=== PATIENT | male | born 1960 | race Caucasian/White ===

== ENCOUNTER 2018-09-09 07:11 | Emergency (ER) | payer BC, SELFPAY ==
[2018-09-09] VITALS (14 sets, daily range): BP systolic 96–143; BP diastolic 55–83; PULSE 72–120; RESP 16–24; TEMP 36.3–36.8; O2SAT 98–100; BMI 25.7
--- NOTE | 2018-09-09 07:20 | ED.ARRPALP ---
HPI - Arrhythmia/Palpitations General Chief Complaint: Arrhythmia/Palpitations Stated Complaint: AFIB last night Time Seen by Provider: 09/09/18 07:19 Source: patient and family () Mode of arrival: ambulatory Limitations: no limitations History of Present Illness HPI narrative: This is a 58-year-old male comes to the emergency department with complaint of AFib in RVR. Patient states he has a history of atrial fibrillation. He can usually feel when he is in AFib. He states he has had cardioversion twice once here before and wants them out [place]. Sees Dr. granger is his sizing machine tender. He states that last night he doubled up on his beta-pablo. This morning he took a dose as well. He states that once before he has done that and it has been helpful to cause him to cardiovert back into a regular rhythm but was unsuccessful overnight. Patient did this under the direction of his sizing machine tender. He felt short of breath about a week ago and was diagnosed with pneumonia he has been on azithromycin she has finished. He has not had any fevers, no chills but his states he has felt cold a lot recently. No chest pain or pressure, no recent shortness of breath. No nausea no vomiting. He has had some loose stool today. No urinary issues and no swelling in his lower extremities. He did stop drinking alcohol cold turkey 5 days ago on Wednesday. He states he felt very shaky and had sort of withdrawal symptoms for about 36 hours but does have almost completely resolved. He takes medication for hypertension, dyslipidemia, he takes Dilantin but states because of seizures from alcohol. He also takes an aspirin [address] Joseluis newsome is his primary care along with Dr. cherri Lazo is his sizing machine tender. Has had a stress test in the past no cardiac catheterization. Related Data Home Medications Medication Instructions Recorded Confirmed Inderal XL 80 mg PO QDAY #0 01/11/17 09/09/18 losartan 50 mg PO QDAY #0 01/11/17 09/09/18 trazodone 100 mg PO QDAY #0 01/11/17 09/09/18 Adults Multivitamin 09/09/18 aspirin [Aspirin Low Dose] 81 mg PO DAILY 09/09/18 09/09/18 phenytoin sodium extended 100 mg PO TID 09/09/18 09/09/18 [Dilantin Extended] rosuvastatin [Crestor] 40 mg PO DAILY 09/09/18 09/09/18 vitamin B complex [Super B-50 1 cap PO DAILY 09/09/18 09/09/18 Complex] Allergies Allergy/AdvReac Type Severity Reaction Status Date / Time No Known Drug Allergies Allergy Verified 09/09/18 07:37 Review of Systems Review of Systems ROS Unobtainable: All systems reviewed & are unremarkable except as noted in HPI and below Constitutional Denies chills, Denies fever(s), Denies lethargy and Denies weakness Cardiovascular Denies chest pain, Denies syncope, Reports rapid heart rate, Denies edema, Reports irregular heart rhythm, Denies leg edema, Denies lightheadedness, Denies radiating jaw, neck or arm pain, Denies palpitations, Reports dyspnea (1 week before), Denies dyspnea on exertion and Denies orthopnea Respiratory Reports chest congestion, Denies cough, Denies hemoptysis, Denies excessive phlegm production, Denies pain on inspiration, Denies pain with cough, Reports dyspnea (1 week before), Denies dyspnea on exertion and Denies wheezing Gastrointestinal Gastrointestinal: Denies abdominal pain, Denies melena, Denies hematochezia, Denies change in bowel habits, Denies diarrhea, Denies nausea and Denies vomiting Genitourinary Denies hematuria, Denies dysuria, Denies flank pain and Denies urinary urgency Neurologic Denies syncope and Denies weakness Endocrine Reports cold intolerance and Denies palpitations Allergic/Immunologic Denies wheezing PFSH Medical History (Updated 09/09/18 @ 09:09 by Sandra Mckenzie DO) Pneumonia (Acute) Alcohol related seizure (Chronic) Atrial fibrillation (Chronic) Dyslipidemia (Chronic) Surgical History (Updated 09/09/18 @ 08:13 by Sandra Mckenzie DO) H/O thumb surgery (Resolved) Social History (Updated 09/09/18 @ 08:13 by Sandra Mckenzie DO) Smoking Status: Current every day smoker alcohol intake: current substance use type: does not use Social History (Updated 09/09/18 @ 08:13 by Sandra Mckenzie DO) Smoking Status: Current every day smoker alcohol intake: current substance use type: does not use Exam Narrative Exam Narrative: GENERAL: Alert and oriented x three, well nourished, well appearing male. HEENT: Head normocephalic, atraumatic, EOMI, pupils reactive, face symmetric, moist mucous membranes NECK: Supple, full range of motion CARDIOVASCULAR: irregularly irregular rate and rhythm without murmurs, rubs or gallops. RESPIRATORY: Breath sounds equal bilaterally, no wheezes rales or rhonchi. ABDOMEN: Soft, nontender. Normoactive bowel sounds all 4 quadrants. No guarding or rebound, rigidity, no mass : No CVA tenderness EXTREMITIES: Normal range of motion, no clubbing or edema. Neurovascularly intact NEUROLOGICAL: Cranial nerves II through XII grossly intact. Moving all extremities SKIN: Warm, dry, no petechiae, no rashes or lesions. Initial Vital Signs Initial Vital Signs: Vital Signs Temperature 98.2 F 09/09/18 07:20 Pulse Rate 118 H 09/09/18 07:20 Respiratory Rate 24 09/09/18 07:20 Blood Pressure 116/80 09/09/18 07:20 Pulse Oximetry 100 09/09/18 07:20 Procedures Cardioversion Consent Signed: Yes Indication: atrial fibrillation, less than 24 hours of symptoms. Time out performed: Yes Preparation: manager monitoring applied, supplemental O2 applied, suction/airway equipment at bedside and IV secured IV Etomidate Dose (mgs): 8 Total Time of Sedation (Min): 4 Number of attempts (shocks): 1 Joules used: 150 Cardiac rhythm post-cardioversion: Normal sinus rhythm. Patient tolerated procedure sedation: Well Complications sedation: none Procedural Sedation Patient Age: Patient is 5yrs or older Consent signed: Yes Time out performed: Yes Indication: other (cardioversion/afib) ASA Class: II Mallampati Airway Classification: Class II Time of Last PO Intake: 06:00 Preparation: manager monitoring applied, pulse oximeter, supplemental O2 applied, reversal agents at bedside, suction/airway equipment at bedside and IV secured IV Etomidate dose (mg): 8 ED Sedation Level: Moderate (Concious) Patient Tolerated Procedure: Well Complications: none Course Orders Ordered: Discontinued Medications Aspirin (Aspirin Chew) 324 mg PO NOW ONE Stop: 09/09/18 07:20 Last Admin: 09/09/18 07:43 Dose: 243 mg Diltiazem HCl (Cardizem) 10 mg IV NOW ONE Stop: 09/09/18 07:33 Last Admin: 09/09/18 07:44 Dose: 10 mg Etomidate (Amidate) 8 mg IV NOW ONE Stop: 09/09/18 09:13 Last Admin: 09/09/18 08:55 Dose: 8 mg Sodium Chloride (Normal Saline 0.9%) 1,000 mls @ 1,000 mls/hr IV BOLUS ONE Stop: 09/09/18 08:18 Last Infusion: 09/09/18 09:11 Dose: 0 mls/hr Admin: 09/09/18 07:41 Dose: 1,000 mls/hr Vital Signs - 8 hr 09/09/18 18:28 Pulse Rate 117 H Respiratory Rate 16 MDM - Arrhythmia/Palpitations Lab Data Attestation: I reviewed the patient's lab results. Result diagrams: 09/09/18 07:33 09/09/18 07:33 Lab Results 09/09/18 09/09/18 09/09/18 Range/Units 07:33 07:33 07:33 WBC 7.9 (4.5-11.0) X10^3/uL RBC 4.26 L (4.5-5.9) X10^6/uL Hgb 13.9 (13.5-17.5) g/dL Hct 39.8 L (41-53) % MCV 93.5 (80-100) fL MCH 32.5 (26-34) PG MCHC 34.8 (30-36) % RDW 12.3 (11.6-14.8) % Plt Count 191 (150-400) X10^3/uL Neut % (Auto) 67.6 (50-75) % Lymph % (Auto) 18.7 L (25-40) % Henderson % (Auto) 10.6 (3-14) % Eos % (Auto) 2.4 (2-4) % Baso % (Auto) 0.7 (0-2) % Neut # (Auto) 5400 (6963-0675) /uL Lymph # (Auto) 1500 (5513-9410) /uL Henderson # (Auto) 800 (0-900) /uL Eos # (Auto) 200 (0-450) /uL Baso # (Auto) 100 (0-100) /uL PT 9.4 L (10.1-12.7) SECONDS INR 0.8 L (0.9-1.3) APTT 30 (26.4-36.2) SECONDS Sodium 138 (137-145) mmol/L Potassium 3.6 (3.4-5.1) mmol/L Chloride 102 (98-107) mmol/L Carbon Dioxide 29 (22-32) mmol/L BUN 19 (9-20) mg/dL Creatinine 0.80 (0.66-1.25) mg/dL Estimated GFR > 60.0 (>60) mL/min BUN/Creatinine Ratio 23.8 H (6-22) Glucose 120 H (70-100) mg/dL Calcium 8.9 (8.4-10.2) mg/dL Magnesium 2.0 (1.6-2.3) mg/dL Total Creatine Kinase 108 (55-170) U/L CK-MB (CK-2) 2.34 (<2.37) ng/mL CK-MB (CK-2) Rel Index 2.2 (1.5-5.0) % Troponin I 0.013 (0.01-0.034) ng/mL TSH (0.47-4.68) uIU/mL Phenytoin (10-20) ug/mL 09/09/18 09/09/18 Range/Units 07:33 07:33 WBC (4.5-11.0) X10^3/uL RBC (4.5-5.9) X10^6/uL Hgb (13.5-17.5) g/dL Hct (41-53) % MCV (80-100) fL MCH (26-34) PG MCHC (30-36) % RDW (11.6-14.8) % Plt Count (150-400) X10^3/uL Neut % (Auto) (50-75) % Lymph % (Auto) (25-40) % Henderson % (Auto) (3-14) % Eos % (Auto) (2-4) % Baso % (Auto) (0-2) % Neut # (Auto) (5320-8242) /uL Lymph # (Auto) (4224-3663) /uL Henderson # (Auto) (0-900) /uL Eos # (Auto) (0-450) /uL Baso # (Auto) (0-100) /uL PT (10.1-12.7) SECONDS INR (0.9-1.3) APTT (26.4-36.2) SECONDS Sodium (137-145) mmol/L Potassium (3.4-5.1) mmol/L Chloride (98-107) mmol/L Carbon Dioxide (22-32) mmol/L BUN (9-20) mg/dL Creatinine (0.66-1.25) mg/dL Estimated GFR (>60) mL/min BUN/Creatinine Ratio (6-22) Glucose (70-100) mg/dL Calcium (8.4-10.2) mg/dL Magnesium (1.6-2.3) mg/dL Total Creatine Kinase (55-170) U/L CK-MB (CK-2) (<2.37) ng/mL CK-MB (CK-2) Rel Index (1.5-5.0) % Troponin I (0.01-0.034) ng/mL TSH 3.57 (0.47-4.68) uIU/mL Phenytoin 7.5 L (10-20) ug/mL Imaging Data Chest x-ray: Attestation: I personally reviewed and interpreted this imaging study as follows: Radiologist's impression: [address] [address] XRay Report Signed Patient: Prakash Cameron R#: [id number] : 1Acct:[id number] Age/Sex: 58 / MDate of Service: 09/09/18 Loc: ED Accession Number: [id number] Procedure: XR chest 1V Ordering Provider: Sandra Mckenzie D.O. PROCEDURE: XR CHEST 1V INDICATIONS: afib TECHNIQUE: One view of the chest was acquired. COMPARISON: [facility], , CHEST 1 VIEW, 02/04/2015, 12:33. FINDINGS: Surgical changes and devices: None. Lungs and pleura: Lungs are clear. No pleural effusions or pneumothorax. Mediastinum: Mediastinal contours appear normal. Heart size is normal. Bones and chest wall: No suspicious bony lesions. Overlying soft tissues appear unremarkable. IMPRESSION: No acute pulmonary pathology. Dictated by: Alvarez May M.D. on 09/09/2018 at 8:34 Approved by: Alvarez May M.D. on 09/09/2018 at 8:34 ECG Data Attestation: I personally reviewed and interpreted this ECG as follows: Prior ECG tracings: available for review Interpretation: atrial fibrillation with rapid ventricular response. rate of 132, qrs 89, qtc 367. No ST elevation. EKG #2. Shows sinus rhythm with ventricular rate of 65 APR interval 155 and a QRS 87 and a QTC of 404. No ST elevation or depression. EKG APPEARS SIMILAR TO PRIOR IN SINUS RHYTHM FROM 02/04/2015. MDM Narrative Medical decision making narrative: Patient tolerated procedure well. He is in a regular rhythm after conversion. And is asymptomatic. Patients and I discussed that likely his sudden stopping of alcohol intake was a predisposing factor for having another episode of atrial fibrillation. Patient had discussed that it would be good to continue to avoid alcohol. Patient states he was on Dilantin for seizures secondary to alcohol withdrawal but this is atypical, his Dilantin level is low so would not contact him to increase his Dilantin level at this time. Patient is to call and follow up with Cardiology or his primary care. He is also to continue his home medications as prescribed. Discharge Plan Departure Patient Disposition: Home Clinical Impression: Atrial fibrillation with RVR Discharge Date/Time: 09/09/18 09:42 Interventions: ED Discharge Assessment Last Done: 09/09/18 09:40 Instructions: DI for Atrial Fibrillation Activity Restrictions/Additional Instructions: Follow-up with her sizing machine tender or primary care in the next 3-5 days. Call for an appointment. Continue your home medications as prescribed. A Dilantin level is pending. Do not go to work today you may return to work tomorrow. Return to the emergency department for recurrent symptoms, lightheadedness, passing out, chest pain, new shortness of breath, persistent nausea or vomiting, weakness, severe abdominal pain, black or bloody stools or other new or concerning symptoms. Prescriptions: No Action trazodone 100 MG tablet 100 mg PO QDAY Qty: 0 RF: 0 losartan 50 MG tablet 50 mg PO QDAY Qty: 0 RF: 0 Inderal XL 80 MG capsule,extended release 24hr 80 mg PO QDAY Qty: 0 RF: 0 phenytoin sodium extended [Dilantin Extended] 100 mg Capsule 100 mg PO TID RF: 0 rosuvastatin [Crestor] 40 mg Tablet 40 mg PO DAILY RF: 0 aspirin [Aspirin Low Dose] 81 mg Tablet,Delayed Release (Dr/Ec) 81 mg PO DAILY RF: 0 Adults Multivitamin RF: 0 vitamin B complex [Super B-50 Complex] Capsule 1 cap PO DAILY RF: 0 Referrals: Bill Leo MD [Primary Care Provider] - Donald Sena MD [Physician] -
--- NOTE | 2018-09-09 07:28 | PC.NURSE ---
History of heavy alcohol drinking; trying to quit - last drink Wednesday;
--- NOTE | 2018-09-09 07:33 | ED_ITS ---
HPI - Arrhythmia/Palpitations General Chief Complaint: Arrhythmia/Palpitations Stated Complaint: AFIB last night Time Seen by Provider: 09/09/18 07:19 Source: patient and family () Mode of arrival: ambulatory Limitations: no limitations History of Present Illness HPI narrative: This is a 58-year-old male comes to the emergency department with complaint of AFib in RVR. Patient states he has a history of atrial fibrillation. He can usually feel when he is in AFib. He states he has had cardioversion twice once here before and wants them out [place]. Sees Dr. granger is his bonderizer. He states that last night he doubled up on his beta-pablo. This morning he took a dose as well. He states that once before he has done that and it has been helpful to cause him to cardiovert back into a regular rhythm but was unsuccessful overnight. Patient did this under the direction of his bonderizer. He felt short of breath about a week ago and was diagnosed with pneumonia he has been on azithromycin she has finished. He has not had any fevers, no chills but his states he has felt cold a lot recently. No chest pain or pressure, no recent shortness of breath. No nausea no vomiting. He has had some loose stool today. No urinary issues and no swelling in his lower extremities. He did stop drinking alcohol cold turkey 5 days ago on Wednesday. He states he felt very shaky and had sort of withdrawal symptoms for about 36 hours but does have almost completely resolved. He takes medication for hypertension, dyslipidemia, he takes Dilantin but states because of seizures from alcohol. He also takes an aspirin [address] Joseluis newsome is his primary care along with Dr. cherri Lazo is his bonderizer. Has had a stress test in the past no cardiac catheterization. Related Data Home Medications Medication Instructions Recorded Confirmed Inderal XL 80 mg PO QDAY #0 01/11/17 09/09/18 losartan 50 mg PO QDAY #0 01/11/17 09/09/18 trazodone 100 mg PO QDAY #0 01/11/17 09/09/18 Adults Multivitamin 09/09/18 aspirin [Aspirin Low Dose] 81 mg PO DAILY 09/09/18 09/09/18 phenytoin sodium extended 100 mg PO TID 09/09/18 09/09/18 [Dilantin Extended] rosuvastatin [Crestor] 40 mg PO DAILY 09/09/18 09/09/18 vitamin B complex [Super B-50 1 cap PO DAILY 09/09/18 09/09/18 Complex] Allergies Allergy/AdvReac Type Severity Reaction Status Date / Time No Known Drug Allergies Allergy Verified 09/09/18 07:37 Review of Systems Review of Systems ROS Unobtainable: All systems reviewed & are unremarkable except as noted in HPI and below Constitutional Denies chills, Denies fever(s), Denies lethargy and Denies weakness Cardiovascular Denies chest pain, Denies syncope, Reports rapid heart rate, Denies edema, Reports irregular heart rhythm, Denies leg edema, Denies lightheadedness, Denies radiating jaw, neck or arm pain, Denies palpitations, Reports dyspnea (1 week before), Denies dyspnea on exertion and Denies orthopnea Respiratory Reports chest congestion, Denies cough, Denies hemoptysis, Denies excessive phlegm production, Denies pain on inspiration, Denies pain with cough, Reports dyspnea (1 week before), Denies dyspnea on exertion and Denies wheezing Gastrointestinal Gastrointestinal: Denies abdominal pain, Denies melena, Denies hematochezia, Denies change in bowel habits, Denies diarrhea, Denies nausea and Denies vomiting Genitourinary Denies hematuria, Denies dysuria, Denies flank pain and Denies urinary urgency Neurologic Denies syncope and Denies weakness Endocrine Reports cold intolerance and Denies palpitations Allergic/Immunologic Denies wheezing PFSH Medical History (Updated 09/09/18 @ 09:09 by Sandra Mckenzie DO) Pneumonia (Acute) Alcohol related seizure (Chronic) Atrial fibrillation (Chronic) Dyslipidemia (Chronic) Surgical History (Updated 09/09/18 @ 08:13 by Sandra Mckenzie DO) H/O thumb surgery (Resolved) Social History (Updated 09/09/18 @ 08:13 by Sandra Mckenzie DO) Smoking Status: Current every day smoker alcohol intake: current substance use type: does not use Social History (Updated 09/09/18 @ 08:13 by Sandra Mckenzie DO) Smoking Status: Current every day smoker alcohol intake: current substance use type: does not use Exam Narrative Exam Narrative: GENERAL: Alert and oriented x three, well nourished, well appearing male. HEENT: Head normocephalic, atraumatic, EOMI, pupils reactive, face symmetric, moist mucous membranes NECK: Supple, full range of motion CARDIOVASCULAR: irregularly irregular rate and rhythm without murmurs, rubs or gallops. RESPIRATORY: Breath sounds equal bilaterally, no wheezes rales or rhonchi. ABDOMEN: Soft, nontender. Normoactive bowel sounds all 4 quadrants. No guarding or rebound, rigidity, no mass : No CVA tenderness EXTREMITIES: Normal range of motion, no clubbing or edema. Neurovascularly intact NEUROLOGICAL: Cranial nerves II through XII grossly intact. Moving all extremities SKIN: Warm, dry, no petechiae, no rashes or lesions. Initial Vital Signs Initial Vital Signs: Vital Signs Temperature 98.2 F 09/09/18 07:20 Pulse Rate 118 H 09/09/18 07:20 Respiratory Rate 24 09/09/18 07:20 Blood Pressure 116/80 09/09/18 07:20 Pulse Oximetry 100 09/09/18 07:20 Procedures Cardioversion Consent Signed: Yes Indication: atrial fibrillation, less than 24 hours of symptoms. Time out performed: Yes Preparation: cardiac surgeon applied, supplemental O2 applied, suction/airway equipment at bedside and IV secured IV Etomidate Dose (mgs): 8 Total Time of Sedation (Min): 4 Number of attempts (shocks): 1 Joules used: 150 Cardiac rhythm post-cardioversion: Normal sinus rhythm. Patient tolerated procedure sedation: Well Complications sedation: none Procedural Sedation Patient Age: Patient is 5yrs or older Consent signed: Yes Time out performed: Yes Indication: other (cardioversion/afib) ASA Class: II Mallampati Airway Classification: Class II Time of Last PO Intake: 06:00 Preparation: cardiac surgeon applied, pulse oximeter, supplemental O2 applied, reversal agents at bedside, suction/airway equipment at bedside and IV secured IV Etomidate dose (mg): 8 ED Sedation Level: Moderate (Concious) Patient Tolerated Procedure: Well Complications: none Course Orders Ordered: Discontinued Medications Aspirin (Aspirin Chew) 324 mg PO NOW ONE Stop: 09/09/18 07:20 Last Admin: 09/09/18 07:43 Dose: 243 mg Diltiazem HCl (Cardizem) 10 mg IV NOW ONE Stop: 09/09/18 07:33 Last Admin: 09/09/18 07:44 Dose: 10 mg Etomidate (Amidate) 8 mg IV NOW ONE Stop: 09/09/18 09:13 Last Admin: 09/09/18 08:55 Dose: 8 mg Sodium Chloride (Normal Saline 0.9%) 1,000 mls @ 1,000 mls/hr IV BOLUS ONE Stop: 09/09/18 08:18 Last Infusion: 09/09/18 09:11 Dose: 0 mls/hr Admin: 09/09/18 07:41 Dose: 1,000 mls/hr Vital Signs - 8 hr 09/09/18 18:28 Pulse Rate 117 H Respiratory Rate 16 MDM - Arrhythmia/Palpitations Lab Data Attestation: I reviewed the patient's lab results. Result diagrams: 09/09/18 07:33 09/09/18 07:33 Lab Results 09/09/18 09/09/18 09/09/18 Range/Units 07:33 07:33 07:33 WBC 7.9 (4.5-11.0) X10^3/uL RBC 4.26 L (4.5-5.9) X10^6/uL Hgb 13.9 (13.5-17.5) g/dL Hct 39.8 L (41-53) % MCV 93.5 (80-100) fL MCH 32.5 (26-34) PG MCHC 34.8 (30-36) % RDW 12.3 (11.6-14.8) % Plt Count 191 (150-400) X10^3/uL Neut % (Auto) 67.6 (50-75) % Lymph % (Auto) 18.7 L (25-40) % [place] % (Auto) 10.6 (3-14) % Eos % (Auto) 2.4 (2-4) % Baso % (Auto) 0.7 (0-2) % Neut # (Auto) 5400 (7488-8246) /uL Lymph # (Auto) 1500 (1991-9041) /uL [place] # (Auto) 800 (0-900) /uL Eos # (Auto) 200 (0-450) /uL Baso # (Auto) 100 (0-100) /uL PT 9.4 L (10.1-12.7) SECONDS INR 0.8 L (0.9-1.3) APTT 30 (26.4-36.2) SECONDS Sodium 138 (137-145) mmol/L Potassium 3.6 (3.4-5.1) mmol/L Chloride 102 (98-107) mmol/L Carbon Dioxide 29 (22-32) mmol/L BUN 19 (9-20) mg/dL Creatinine 0.80 (0.66-1.25) mg/dL Estimated GFR > 60.0 (>60) mL/min BUN/Creatinine Ratio 23.8 H (6-22) Glucose 120 H (70-100) mg/dL Calcium 8.9 (8.4-10.2) mg/dL Magnesium 2.0 (1.6-2.3) mg/dL Total Creatine Kinase 108 (55-170) U/L CK-MB (CK-2) 2.34 (<2.37) ng/mL CK-MB (CK-2) Rel Index 2.2 (1.5-5.0) % Troponin I 0.013 (0.01-0.034) ng/mL TSH (0.47-4.68) uIU/mL Phenytoin (10-20) ug/mL 09/09/18 09/09/18 Range/Units 07:33 07:33 WBC (4.5-11.0) X10^3/uL RBC (4.5-5.9) X10^6/uL Hgb (13.5-17.5) g/dL Hct (41-53) % MCV (80-100) fL MCH (26-34) PG MCHC (30-36) % RDW (11.6-14.8) % Plt Count (150-400) X10^3/uL Neut % (Auto) (50-75) % Lymph % (Auto) (25-40) % [place] % (Auto) (3-14) % Eos % (Auto) (2-4) % Baso % (Auto) (0-2) % Neut # (Auto) (0079-6679) /uL Lymph # (Auto) (3850-0570) /uL [place] # (Auto) (0-900) /uL Eos # (Auto) (0-450) /uL Baso # (Auto) (0-100) /uL PT (10.1-12.7) SECONDS INR (0.9-1.3) APTT (26.4-36.2) SECONDS Sodium (137-145) mmol/L Potassium (3.4-5.1) mmol/L Chloride (98-107) mmol/L Carbon Dioxide (22-32) mmol/L BUN (9-20) mg/dL Creatinine (0.66-1.25) mg/dL Estimated GFR (>60) mL/min BUN/Creatinine Ratio (6-22) Glucose (70-100) mg/dL Calcium (8.4-10.2) mg/dL Magnesium (1.6-2.3) mg/dL Total Creatine Kinase (55-170) U/L CK-MB (CK-2) (<2.37) ng/mL CK-MB (CK-2) Rel Index (1.5-5.0) % Troponin I (0.01-0.034) ng/mL TSH 3.57 (0.47-4.68) uIU/mL Phenytoin 7.5 L (10-20) ug/mL Imaging Data Chest x-ray: Attestation: I personally reviewed and interpreted this imaging study as follows: Radiologist's impression: [address] [address] XRay Report Signed Patient: Prakash Cameron R#: [id number] : 1Acct:[id number] Age/Sex: 58 / MDate of Service: 09/09/18 Loc: ED Accession Number: [id number] Procedure: XR chest 1V Ordering Provider: Sandra Mckenzie D.O. PROCEDURE: XR CHEST 1V INDICATIONS: afib TECHNIQUE: One view of the chest was acquired. COMPARISON: [facility], , CHEST 1 VIEW, 02/04/2015, 12:33. FINDINGS: Surgical changes and devices: None. Lungs and pleura: Lungs are clear. No pleural effusions or pneumothorax. Mediastinum: Mediastinal contours appear normal. Heart size is normal. Bones and chest wall: No suspicious bony lesions. Overlying soft tissues appear unremarkable. IMPRESSION: No acute pulmonary pathology. Dictated by: Alvarez May M.D. on 09/09/2018 at 8:34 Approved by: Alvarez May M.D. on 09/09/2018 at 8:34 ECG Data Attestation: I personally reviewed and interpreted this ECG as follows: Prior ECG tracings: available for review Interpretation: atrial fibrillation with rapid ventricular response. rate of 132, qrs 89, qtc 367. No ST elevation. EKG #2. Shows sinus rhythm with ventricular rate of 65 APR interval 155 and a QRS 87 and a QTC of 404. No ST elevation or depression. EKG APPEARS SIMILAR TO PRIOR IN SINUS RHYTHM FROM 02/04/2015. MDM Narrative Medical decision making narrative: Patient tolerated procedure well. He is in a regular rhythm after conversion. And is asymptomatic. Patients and I discussed that likely his sudden stopping of alcohol intake was a predisposing factor for having another episode of atrial fibrillation. Patient had discussed that it would be good to continue to avoid alcohol. Patient states he was on Dilantin for seizures secondary to alcohol withdrawal but this is atypical, his Dilantin level is low so would not contact him to increase his Dilantin level at this time. Patient is to call and follow up with Cardiology or his primary care. He is also to continue his home medications as prescribed. Discharge Plan Departure Patient Disposition: Home Clinical Impression: Atrial fibrillation with RVR Discharge Date/Time: 09/09/18 09:42 Interventions: ED Discharge Assessment Last Done: 09/09/18 09:40 Instructions: DI for Atrial Fibrillation Activity Restrictions/Additional Instructions: Follow-up with her bonderizer or primary care in the next 3-5 days. Call for an appointment. Continue your home medications as prescribed. A Dilantin level is pending. Do not go to work today you may return to work tomorrow. Return to the emergency department for recurrent symptoms, lightheadedness, passing out, chest pain, new shortness of breath, persistent nausea or vomiting, weakness, severe abdominal pain, black or bloody stools or other new or concerning symptoms. Prescriptions: No Action trazodone 100 MG tablet 100 mg PO QDAY Qty: 0 RF: 0 losartan 50 MG tablet 50 mg PO QDAY Qty: 0 RF: 0 Inderal XL 80 MG capsule,extended release 24hr 80 mg PO QDAY Qty: 0 RF: 0 phenytoin sodium extended [Dilantin Extended] 100 mg Capsule 100 mg PO TID RF: 0 rosuvastatin [Crestor] 40 mg Tablet 40 mg PO DAILY RF: 0 aspirin [Aspirin Low Dose] 81 mg Tablet,Delayed Release (Dr/Ec) 81 mg PO DAILY RF: 0 Adults Multivitamin RF: 0 vitamin B complex [Super B-50 Complex] Capsule 1 cap PO DAILY RF: 0 Referrals: Bill Leo MD [Primary Care Provider] - Donald Sena MD [Physician] -
[2018-09-09 07:41] LABS: Add Manual Diff / Slide Review NO; Basophils Absolute Auto 100 /uL (0-100); Basophils Percent Auto 0.7 % (0-2); Eosinophils Absolute Auto 200 /uL (0-450); Eosinophils Percent Auto 2.4 % (2-4); Hematocrit 39.8 % (41-53); Hemoglobin 13.9 g/dL (13.5-17.5); Lymphocytes Absolute Auto 1500 /uL (1100-4500); Lymphocytes Percent Auto 18.7 % (25-40); Mean Corpuscular HGB Conc 34.8 % (30-36); Mean Corpuscular Hemoglobin 32.5 PG (26-34); Mean Corpuscular Volume 93.5 fL (80-100); Monocytes Absolute Auto 800 /uL (0-900); Monocytes Percent Auto 10.6 % (3-14); Neutrophils Absolute Auto 5400 /uL (1500-7000); Neutrophils Percent Auto 67.6 % (50-75); Platelet Count 191 X10^3/uL (150-400); Red Blood Cell Count 4.26 X10^6/uL (4.5-5.9); Red Cell Distribution Width 12.3 % (11.6-14.8); White Blood Cell Count 7.9 X10^3/uL (4.5-11.0)
[2018-09-09] MEDS: SODIUM CHLORIDE 0.9% 1,000 ML 1000 ML IV (07:41)
[2018-09-09] MEDS: ASPIRIN 81 MG TAB 324 MG PO (07:43)
[2018-09-09] MEDS: dilTIAZem 5 MG/ML SDV 10 MG IV (07:44)
[2018-09-09 07:52] LABS: INR 0.8 (0.9-1.3); Prothrombin Time 9.4 SECONDS (10.1-12.7)
[2018-09-09 07:55] LABS: PTT Partial Thromboplastin Tim 30 SECONDS (26.4-36.2)
[2018-09-09 07:57] LABS: BUN Creatinine Ratio 23.8 (6-22); Blood Urea Nitrogen 19 mg/dL (9-20); Calcium 8.9 mg/dL (8.4-10.2); Carbon Dioxide 29 mmol/L (22-32); Chloride 102 mmol/L (98-107); Creatine Kinase 108 U/L (55-170); Estimated Glomerular Filt Rate > 60.0 mL/min (>60); Glucose 120 mg/dL (70-100); HEMOLYSIS < 15 (0-50); Potassium 3.6 mmol/L (3.4-5.1); Sodium 138 mmol/L (137-145)
[2018-09-09 08:08] LABS: Troponin I 0.013 ng/mL (0.01-0.034)
[2018-09-09 08:11] LABS: CKMB % Relative Index 2.2 % (1.5-5.0); Creatine Kinase MB 2.34 ng/mL (<2.37)
[2018-09-09 08:43] LABS: Thyroid Stimulating Hormone 3.57 uIU/mL (0.47-4.68)
[2018-09-09] MEDS: ETOMIDATE 2 MG/ML VIAL 8 MG IV (08:55)
[2018-09-09 09:36] LABS: Phenytoin / Dilantin 7.5 ug/mL (10-20)
== END 2018-09-09 09:42 | disposition home or self-care (01) ==
PROVIDERS: Emergency Provider Emergency Medicine; Family Provider Family Medicine; PCP Family Medicine
DX: I48.91 Unspecified atrial fibrillation (principal)
CPT/HCPCS: 36591; 71045; 80048; 80185; 82550; 82553; 83735; 84443; 84484; 85025; 85610; 85730; 92960; 93005; 93041; 94770; 96361; 96374; 96375; 99285; 99291

== ENCOUNTER 2019-02-07 02:00 | Emergency (ER) | payer BC, SELFPAY ==
[2019-02-07 02:07] VITALS: BP 129/69; PULSE 96; RESP 15; TEMP 37; O2SAT 99; BMI 29.1
--- NOTE | 2019-02-07 02:07 | DI.RAD.S_ITS ---
PROCEDURE: XR SHOULDER LT MIN 2V INDICATIONS: fall with pain, decreased range of motion TECHNIQUE: 3 views of the shoulder were acquired. COMPARISON: [facility], , SHOULDER MINIMUM 2VIEW RIGHT, 01/11/2017, 4:09. FINDINGS: Bones: Mild to moderate acromioclavicular joint osteoarthritis is seen. No fractures or dislocations. No suspicious bony lesions. Visualized ribs appear intact. Soft tissues: No suspicious soft tissue calcifications. IMPRESSION: No acute shoulder fracture or dislocation. 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 Dictated by: Alvarez May M.D. on 02/07/2019 at 9:35 Approved by: Alvarez May M.D. on 02/07/2019 at 9:35
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
[2019-02-07] MEDS: HYDROCODONE/ACET 5/325 PREPACK 1 BOTTLE MISC (03:18)
[2019-02-07 03:23] VITALS: BP 134/81; PULSE 94; O2SAT 97
== END 2019-02-07 03:31 | disposition home or self-care (01) ==
PROVIDERS: Emergency Provider Emergency Medicine; Family Provider Family Medicine; PCP Family Medicine
DX: S46.002A Unspecified injury of muscle(s) and tendon(s) of the rotator cuff of left shoulder, initial encounter (principal); V28.0XXA Motorcycle driver injured in noncollision transport accident in nontraffic accident, initial encounter
CPT/HCPCS: 73030; 99282; 99283

== ENCOUNTER 2019-07-22 15:02 | Emergency (ER) | payer BC, SELFPAY ==
[2019-07-22 15:13] VITALS: BP 151/84; PULSE 100; RESP 22; TEMP 36.4; O2SAT 99; BMI 29.2
[2019-07-22 15:27] VITALS: BP 159/79; PULSE 87; RESP 16; O2SAT 97
[2019-07-22 15:30] VITALS: BP 136/74; PULSE 85; RESP 15; O2SAT 98
[2019-07-22] MEDS: SODIUM CHLORIDE 0.9% 1,000 ML 1000 ML IV (16:25)
[2019-07-22 16:30] VITALS: BP 139/78; PULSE 79; RESP 18; O2SAT 99
[2019-07-22 16:36] LABS: Add Manual Diff / Slide Review NO; Basophils Absolute Auto 0 /uL (0-100); Basophils Percent Auto 0.3 % (0-2); Eosinophils Absolute Auto 100 /uL (0-450); Eosinophils Percent Auto 0.8 % (2-4); Hematocrit 37.4 % (41-53); Hemoglobin 13.2 g/dL (13.5-17.5); Lymphocytes Absolute Auto 1100 /uL (1100-4500); Lymphocytes Percent Auto 10.7 % (25-40); Mean Corpuscular HGB Conc 35.2 % (30-36); Mean Corpuscular Hemoglobin 32.4 PG (26-34); Mean Corpuscular Volume 91.9 fL (80-100); Monocytes Absolute Auto 700 /uL (0-900); Monocytes Percent Auto 7.1 % (3-14); Neutrophils Absolute Auto 8300 /uL (1500-7000); Neutrophils Percent Auto 81.1 % (50-75); Platelet Count 164 X10^3/uL (150-400); Red Blood Cell Count 4.07 X10^6/uL (4.5-5.9); Red Cell Distribution Width 13.6 % (11.6-14.8); White Blood Cell Count 10.2 X10^3/uL (4.5-11.0)
[2019-07-22 17:00] VITALS: BP 139/86; PULSE 76; RESP 18; O2SAT 99
[2019-07-22 17:05] LABS: Alanine Aminotransferase 48 IU/L (<50); Albumin 4.1 g/dL (3.5-5.0); Albumin Globulin Ratio 1.3 (1.0-2.8); Alkaline Phosphatase 85 U/L (38-126); Aspartate Aminotransferase 146 IU/L (17-59); BUN Creatinine Ratio 6.1 (6-22); Bilirubin Total 0.5 mg/dL (0.2-1.3); Blood Urea Nitrogen 20 mg/dL (9-20); Calcium 9.1 mg/dL (8.4-10.2); Carbon Dioxide 23 mmol/L (22-32); Chloride 99 mmol/L (98-107); Estimated Glomerular Filt Rate 19.4 mL/min (>60); Globulin 3.1 g/dL (1.7-4.1); Glucose 100 mg/dL (70-100); Potassium 3.9 mmol/L (3.4-5.1); Sodium 134 mmol/L (137-145); Total Protein 7.2 g/dL (6.3-8.2)
[2019-07-22 17:07] VITALS: BP 139/86; PULSE 76
[2019-07-22 17:09] LABS: HEMOLYSIS 55 (0-50)
[2019-07-22 17:23] LABS: Procalcitonin 0.24 ng/mL (<0.5)
[2019-07-22 17:37] LABS: Lactate (Lactic Acid) 3.7 mmol/L (0.7-2.1)
--- NOTE | 2019-07-22 18:28 | ED.GENADULT ---
HPI - General Adult General Chief complaint: Dental/Oral Stated complaint: tongue swollen and very discolored Time Seen by Provider: 07/22/19 15:23 Source: patient Mode of arrival: Ambulatory Limitations: no limitations History of Present Illness HPI narrative: 58-year-old gentleman with alcohol use disorder, seizure disorder, hypertension, hyperlipidemia presents with lesions to his tongue about which he is concerned. His mouth is sore but not so sore he is unable to swallow. He also notes that he has not had any alcohol for about 4 days. He does note that he has had seizures when he stops drinking alcohol completely. At this point his CIWA score is 0 so I do not suspect that he is having acute alcohol withdrawal seizures or DTs currently. His notes that he has only been taking his Dilantin in the evening rather than 3 times a day. Both the patient and his are concerned he may have had a seizure 1 evening and bit his tongue and that's what caused the problem. He denies fever, cough, diarrhea, vomiting. No tremor or alcohol withdrawal signs at this time, no chest pain no dyspnea no rashes or lower extremity edema. Related Data Home Medications Medication Instructions Recorded Confirmed Inderal XL 80 mg PO QDAY #0 01/11/17 09/09/18 losartan 50 mg PO QDAY #0 01/11/17 09/09/18 trazodone 100 mg PO QDAY #0 01/11/17 09/09/18 Adults Multivitamin 09/09/18 aspirin [Aspirin Low Dose] 81 mg PO DAILY 09/09/18 09/09/18 phenytoin sodium extended 100 mg PO TID 09/09/18 09/09/18 [Dilantin Extended] rosuvastatin [Crestor] 40 mg PO DAILY 09/09/18 09/09/18 vitamin B complex [Super B-50 1 cap PO DAILY 09/09/18 09/09/18 Complex] Previous Rx's Medication Instructions Recorded clotrimazole 10 mg MM 5XD #50 tab 07/22/19 Allergies Allergy/AdvReac Type Severity Reaction Status Date / Time No Known Drug Allergies Allergy Verified 07/22/19 15:11 Review of Systems Review of Systems Narrative: Overall body aches similar to after prior seizures Otherwise negative Patient History Medical History Alcohol related seizure (Chronic) Atrial fibrillation (Chronic) Dyslipidemia (Chronic) Pneumonia (Acute) Surgical History H/O thumb surgery (Resolved) Social History Smoking Status: Current every day smoker alcohol intake: current substance use type: does not use Smoking Status: Current every day smoker alcohol intake frequency: 3 or more drinks per day Substance Use Type: does not use Exam Narrative Exam Narrative: General: Healthy appearing, in no acute distress. Able to give a complete and coherent history. Well-nourished well-developed HEENT: Tongue with add thick brown discharge over the central portion of the tongue. There's beefy red areas around the edges of the tongue with healing areas of oral mucosa. The left side of the tongue it definitely looks like there was a significant bite. With the healing mucosa he certainly could have had bite damage along the underside most distal portion of his tongue as well. His mucous membranes are otherwise moist. Remainder of the oropharynx is not particularly red. He does not have cervical adenopathy. normal sclera with reactive pupils, Neck: No JVD, supple Respiratory: Lungs are clear to auscultation, no wheezing no rales no rhonchi. Full and symmetrical air movement Cardiac: Regular rate and rhythm no murmurs no bruits Abdomen: Soft nontender good bowel tones, no flank pain Skin: Warm and dry, no rashes Neurologic: Grossly neurologically intact with no obvious asymmetries or abnormalities Extremities: No trauma, well perfused Psych: Cooperative, appropriate insight and affect Initial Vital Signs Initial Vital Signs: Vital Signs Temperature 97.6 F 07/22/19 15:13 Pulse Rate 100 H 07/22/19 15:13 Respiratory Rate 22 07/22/19 15:13 Blood Pressure 151/84 H 07/22/19 15:13 Pulse Oximetry 99 07/22/19 15:13 Course Orders Ordered: ED Orders 07/22/19 16:13 Complete Blood Count AUTO DIFF Stat Comprehensive Metabolic Panel Stat Procalcitonin Stat 07/22/19 16:55 Lactate (Lactic Acid) Stat 07/22/19 17:38 Blood Culture Stat Discontinued Medications Sodium Chloride (Normal Saline 0.9%) 1,000 mls @ 1,000 mls/hr IV BOLUS ONE Stop: 07/22/19 16:22 Last Infusion: 07/22/19 18:27 Dose: 0 mls/hr Documented by: Admin: 07/22/19 16:25 Dose: 1,000 mls/hr Documented by: TAI Vital Signs Vital signs: Vital Signs - 8 hr 07/22/19 15:13 07/22/19 15:27 07/22/19 15:30 Temperature 97.6 F Pulse Rate 100 H 87 85 Respiratory Rate 22 16 15 Blood Pressure 151/84 H Blood Pressure [Left Arm] 159/79 H 136/74 Pulse Oximetry 99 97 98 07/22/19 16:30 07/22/19 17:00 07/22/19 17:07 Temperature Pulse Rate 79 76 76 Respiratory Rate 18 18 Blood Pressure Blood Pressure [Left Arm] 139/78 139/86 139/86 Pulse Oximetry 99 99 Medical Decision Making Lab Data Result diagrams: 07/22/19 16:13 07/22/19 16:13 Labs: Lab Results 07/22/19 07/22/19 07/22/19 Range/Units 16:13 16:13 16:13 WBC 10.2 (4.5-11.0) X10^3/uL RBC 4.07 L (4.5-5.9) X10^6/uL Hgb 13.2 L (13.5-17.5) g/dL Hct 37.4 L (41-53) % MCV 91.9 (80-100) fL MCH 32.4 (26-34) PG MCHC 35.2 (30-36) % RDW 13.6 (11.6-14.8) % Plt Count 164 (150-400) X10^3/uL Neut % (Auto) 81.1 H (50-75) % Lymph % (Auto) 10.7 L (25-40) % [place] % (Auto) 7.1 (3-14) % Eos % (Auto) 0.8 L (2-4) % Baso % (Auto) 0.3 (0-2) % Neut # (Auto) 8300 H (1596-4721) /uL Lymph # (Auto) 1100 (7396-3128) /uL [place] # (Auto) 700 (0-900) /uL Eos # (Auto) 100 (0-450) /uL Baso # (Auto) 0 (0-100) /uL Sodium 134 L (137-145) mmol/L Potassium 3.9 (3.4-5.1) mmol/L Chloride 99 (98-107) mmol/L Carbon Dioxide 23 (22-32) mmol/L BUN 20 (9-20) mg/dL Creatinine 3.30 H (0.66-1.25) mg/dL Estimated GFR 19.4 L (>60) mL/min BUN/Creatinine Ratio 6.1 (6-22) Glucose 100 (70-100) mg/dL Lactate (0.7-2.1) mmol/L Calcium 9.1 (8.4-10.2) mg/dL Total Bilirubin 0.5 (0.2-1.3) mg/dL AST 146 H (17-59) IU/L ALT 48 (<50) IU/L Alkaline Phosphatase 85 (38-126) U/L Total Protein 7.2 (6.3-8.2) g/dL Albumin 4.1 (3.5-5.0) g/dL Globulin 3.1 (1.7-4.1) g/dL Albumin/Globulin Ratio 1.3 (1.0-2.8) Procalcitonin 0.24 (<0.5) ng/mL 07/22/19 Range/Units 16:55 WBC (4.5-11.0) X10^3/uL RBC (4.5-5.9) X10^6/uL Hgb (13.5-17.5) g/dL Hct (41-53) % MCV (80-100) fL MCH (26-34) PG MCHC (30-36) % RDW (11.6-14.8) % Plt Count (150-400) X10^3/uL Neut % (Auto) (50-75) % Lymph % (Auto) (25-40) % [place] % (Auto) (3-14) % Eos % (Auto) (2-4) % Baso % (Auto) (0-2) % Neut # (Auto) (4869-1527) /uL Lymph # (Auto) (1165-2314) /uL [place] # (Auto) (0-900) /uL Eos # (Auto) (0-450) /uL Baso # (Auto) (0-100) /uL Sodium (137-145) mmol/L Potassium (3.4-5.1) mmol/L Chloride (98-107) mmol/L Carbon Dioxide (22-32) mmol/L BUN (9-20) mg/dL Creatinine (0.66-1.25) mg/dL Estimated GFR (>60) mL/min BUN/Creatinine Ratio (6-22) Glucose (70-100) mg/dL Lactate 3.7 H (0.7-2.1) mmol/L Calcium (8.4-10.2) mg/dL Total Bilirubin (0.2-1.3) mg/dL AST (17-59) IU/L ALT (<50) IU/L Alkaline Phosphatase (38-126) U/L Total Protein (6.3-8.2) g/dL Albumin (3.5-5.0) g/dL Globulin (1.7-4.1) g/dL Albumin/Globulin Ratio (1.0-2.8) Procalcitonin (<0.5) ng/mL MDM Narrative Medical decision making narrative: Interesting presentation with uncertain diagnosis. At this point there is clearly no evidence of sepsis. I suspect that there is oral trauma to the tongue from the seizure that he had while he was asleep. His seizure disorders previously diagnosed and he has not been taking appropriate levels of his seizure medications. There is no evidence of acute alcohol withdrawal at this time however the lack alcohol may have led to and even lowered seizure threshold in the setting of a prior seizure disorder. His tongue does look like he has not thrush and will treated as such. Encouraged him to increase his phenytoin back to 3 times a day as prescribed. Also encouraged his overall sobriety and returning to AA meetings. Finally, strongly suggested that he avoid smoking tobacco to help his mouth heal as efficiently and quickly as possible. Discharge Plan Departure Patient Disposition: Home Clinical Impression: Candidiasis of mouth, Seizure Instructions: DI for Thrush, Thrush-Adult Activity Restrictions/Additional Instructions: Thank you for coming in today. Your presentation is certainly interesting. I suspect that you did have a seizure while your sleep and did bite your tongue. It looks like now your tongue is healing but you do have a yeast infection (thrush) that's causing the debris discharge and continued pain. Your labs do not suggest an overall or systemic infection. I'm going to suggest that you use clotrimazole lozenges 5 times a day. Let them dissolving your mouth and try to keep the saliva with the medicine dissolved in it held in your mouth for 5-15 minutes prior to swallowing. If you feel like you are getting worse, increasing pain increasing fevers than you do need to return to the emergency department for further evaluation. You may find that Tylenol is helpful for pain control I wish you the best. I hope your journey to [facility] is successful Prescriptions: New clotrimazole 10 mg rhett 10 mg MM 5XD Qty: 50 RF: 0 No Action trazodone 100 MG tablet 100 mg PO QDAY Qty: 0 RF: 0 losartan 50 MG tablet 50 mg PO QDAY Qty: 0 RF: 0 Inderal XL 80 MG capsule,extended release 24hr 80 mg PO QDAY Qty: 0 RF: 0 phenytoin sodium extended [Dilantin Extended] 100 mg Capsule 100 mg PO TID RF: 0 rosuvastatin [Crestor] 40 mg Tablet 40 mg PO DAILY RF: 0 aspirin [Aspirin Low Dose] 81 mg Tablet,Delayed Release (Dr/Ec) 81 mg PO DAILY RF: 0 Adults Multivitamin RF: 0 vitamin B complex [Super B-50 Complex] Capsule 1 cap PO DAILY RF: 0 Referrals: Bill Leo MD [Primary Care Provider] -
[2019-07-22 19:00] LABS: Reflexed Lactate in 2 Hours Y
== END 2019-07-22 18:53 | disposition home or self-care (01) ==
PROVIDERS: Emergency Provider Emergency Medicine; Family Provider Family Medicine; PCP Family Medicine
DX: B37.0 Candidal stomatitis (principal); R56.9 Unspecified convulsions
CPT/HCPCS: 36415; 80053; 83605; 84145; 85025; 87040; 96360; 96361; 99284

== ENCOUNTER 2019-07-23 05:30 | Emergency (ER) | payer BC, SELFPAY ==
[2019-07-23 05:44] VITALS: BP 159/87; PULSE 80; RESP 14; TEMP 36.7; O2SAT 98; BMI 29.2
--- NOTE | 2019-07-23 07:29 | ED_ITS ---
HPI - Recheck/Abnormal Lab/Rx General Chief Complaint: Recheck/Abnormal Lab/Rx Stated Complaint: cant get persciption filled/symptoms worsening Time Seen by Provider: 07/23/19 07:19 Source: patient Mode of arrival: Ambulatory Limitations: no limitations History of Present Illness HPI narrative: Patient is a 50-year-old male with history of seizures and alcohol abuse presenting with inability to fill his prescription. He was seen evaluated here yesterday diagnosed with thrush prescribed clotrimazole, however he states he did not get it filled any felt like his tongue was getting more swollen. He still has the prescription with him he just wanted re-evaluated and his medication. He has not had any recurrent seizure. MD complaint: medication refill request Related Data Home Medications Medication Instructions Recorded Confirmed Inderal XL 80 mg PO QDAY #0 01/11/17 09/09/18 losartan 50 mg PO QDAY #0 01/11/17 09/09/18 trazodone 100 mg PO QDAY #0 01/11/17 09/09/18 Adults Multivitamin 09/09/18 aspirin [Aspirin Low Dose] 81 mg PO DAILY 09/09/18 09/09/18 phenytoin sodium extended 100 mg PO TID 09/09/18 09/09/18 [Dilantin Extended] rosuvastatin [Crestor] 40 mg PO DAILY 09/09/18 09/09/18 vitamin B complex [Super B-50 1 cap PO DAILY 09/09/18 09/09/18 Complex] Previous Rx's Medication Instructions Recorded clotrimazole 10 mg MM 5XD #50 tab 07/22/19 dexamethasone 0.5 mg PO TID #150 ml 07/23/19 Allergies Allergy/AdvReac Type Severity Reaction Status Date / Time No Known Drug Allergies Allergy Verified 07/22/19 15:11 Review of Systems Review of Systems Narrative: GENERAL: Denies chills,fever HEENT: See HPI RESPIRATORY: Denies dyspnea, cough, wheezing CARDIOVASCULAR: Denies chest pain, palpitations GASTROINTESTINAL: Denies nausea, vomiting MUSCULOSKELETAL: Denies extremity pain, injury SKIN: No rash, no laceration, no pruritus NEUROLOGIC: Denies weakness, dizziness, headache, numbness 8 point review of systems is negative except for those stated above and HPI Patient History Medical History Alcohol related seizure (Chronic) Atrial fibrillation (Chronic) Dyslipidemia (Chronic) Pneumonia (Acute) Surgical History H/O thumb surgery (Resolved) Social History Smoking Status: Current every day smoker alcohol intake: current substance use type: does not use Smoking Status: Current every day smoker alcohol intake frequency: 3 or more drinks per day Substance Use Type: does not use Exam Initial Vital Signs Initial Vital Signs: Vital Signs Temperature 98.1 F 07/23/19 05:44 Pulse Rate 80 07/23/19 05:44 Respiratory Rate 14 07/23/19 05:44 Blood Pressure 159/87 H 07/23/19 05:44 Pulse Oximetry 98 07/23/19 05:44 GENERAL: Well-appearing, well-nourished and in no acute distress. MOUTH: Tongue has thick white coating it is mildly swollen there are some red areas that you can see were injured and they appear to be healing. Airway intact able to speak clearly CARDIOVASCULAR: peripheral pulses in tact, cap refill <2 sec RESPIRATORY: No respiratory distress, speaks in full sentences without difficulty EXTREMITIES: Normal range of motion, no clubbing or edema. Neurovascularly inta ct NEUROLOGICAL: Cranial nerves II through XII grossly intact. Normal gait and speech. SKIN: Warm, dry, no petechiae, no rashes or lesions. Course Vital Signs Vital signs: Vital Signs - 8 hr 07/23/19 05:44 Temperature 98.1 F Pulse Rate 80 Respiratory Rate 14 Blood Pressure 159/87 H Pulse Oximetry 98 Discharge Plan Departure Patient Disposition: Home Clinical Impression: Thrush Discharge Date/Time: 07/23/19 07:45 Instructions: DI for Thrush Activity Restrictions/Additional Instructions: *You have been diagnosed with thrush *What to do: You need to fill your prescriptions today at the pharmacy they open up at 11 *Continue to take medications as directed Take in use Clomid resolve as previously prescribed Dexamethasone swish and spit in her mouth 3 times a day for 1 week (7 days) *Follow up with your primary care provider in 2-3 days [and follow up with ortho, urology etc] *Return to ER if you should have [such as] [or] any new, worsening or concerning symptoms Prescriptions: New dexamethasone 0.5 mg/5 mL solution 0.5 mg PO TID Qty: 150 RF: 0 No Action trazodone 100 MG tablet 100 mg PO QDAY Qty: 0 RF: 0 losartan 50 MG tablet 50 mg PO QDAY Qty: 0 RF: 0 Inderal XL 80 MG capsule,extended release 24hr 80 mg PO QDAY Qty: 0 RF: 0 phenytoin sodium extended [Dilantin Extended] 100 mg Capsule 100 mg PO TID RF: 0 rosuvastatin [Crestor] 40 mg Tablet 40 mg PO DAILY RF: 0 aspirin [Aspirin Low Dose] 81 mg Tablet,Delayed Release (Dr/Ec) 81 mg PO DAILY RF: 0 Adults Multivitamin RF: 0 vitamin B complex [Super B-50 Complex] Capsule 1 cap PO DAILY RF: 0 clotrimazole 10 mg rhett 10 mg MM 5XD Qty: 50 RF: 0 Referrals: Bill Leo MD [Primary Care Provider] -
== END 2019-07-23 07:45 | disposition home or self-care (01) ==
PROVIDERS: Emergency Provider Emergency Medicine; Family Provider Family Medicine; PCP Family Medicine
DX: B37.0 Candidal stomatitis (principal); Z76.0 Encounter for issue of repeat prescription
CPT/HCPCS: 99281; 99283

== ENCOUNTER 2019-07-25 11:25 | Emergency (ER) | payer BC, SELFPAY ==
[2019-07-25 11:37] VITALS: BP 169/89; PULSE 83; RESP 15; TEMP 37.2; O2SAT 99; BMI 29.2
--- NOTE | 2019-07-25 12:43 | PC.NURSE ---
tounge laceration , not better, oral trush is better, +able to drink and eat.
[2019-07-25 13:18] VITALS: BP 160/93; PULSE 103; TEMP 37.3; O2SAT 99
--- NOTE | 2019-07-25 20:23 | ED.DENTAL ---
HPI - Dental/Oral <JOSE Adams - Last Filed: 07/25/19 21:13> General Chief complaint: Dental/Oral Stated complaint: tongue issue Time Seen by Provider: 07/25/19 11:57 Source: patient Mode of arrival: Ambulatory Limitations: no limitations History of Present Illness HPI Narrative: This is a 58-year-old male, smoker, who presents to ED with significant other with chief complain of worsening thrush symptoms and tongue infection. This is patient's 3rd visit to ED. patient was seen initially in 07/22/19 3 days after he had injured the left side tongue possibly after having a seizure at home. He was discharged to home with clotrimazole logenes to use 5 times a day on that day. Patient was also seen in 07/23/19 again before he was able to feel the medication but noticed increasing swelling to his tongue and presents to ED. This time patient was discharged to home with dexamethasone solution and advised to swish and spit 3 times a day for a week and advised to start using clotrimazole lozenges. Patient states he has been using clotrimazole more than a day so far. He and his is concerned that his symptoms have not been improved with these measures. Patient has history of alcohol use disorder, hypertension, hyperlipidemia. Patient denies fever, chills, purulent discharge, nausea or vomiting but reports discomfort on his tongue. Patient has been hydrating himself with liquids but difficult time with eating solid foods due to discomfort. Patient denies tremors, headache, hallucination, chest pain, breathing difficulty at this time. Related Data Home Medications Medication Instructions Recorded Confirmed Inderal XL 80 mg PO QDAY #0 01/11/17 09/09/18 losartan 50 mg PO DAILY #0 01/11/17 07/25/19 trazodone 100 mg PO DAILY #0 01/11/17 07/25/19 Adults Multivitamin 09/09/18 aspirin [Aspirin Low Dose] 81 mg PO DAILY 09/09/18 09/09/18 phenytoin sodium extended 100 mg PO TID 09/09/18 07/25/19 [Dilantin Extended] rosuvastatin [Crestor] 40 mg PO DAILY 09/09/18 07/25/19 vitamin B complex [Super B-50 1 cap PO DAILY 09/09/18 09/09/18 Complex] zolpidem 5 mg PO BEDTIME 07/25/19 07/25/19 Previous Rx's Medication Instructions Recorded clotrimazole 10 mg MM 5XD #50 tab 07/22/19 dexamethasone 0.5 mg PO TID #150 ml 07/23/19 chlorhexidine gluconate 15 ml BUCCAL BID #473 ml 07/25/19 Allergies Allergy/AdvReac Type Severity Reaction Status Date / Time No Known Drug Allergies Allergy Verified 07/25/19 11:37 Review of Systems <JOSE Adams - Last Filed: 07/25/19 21:13> Review of Systems Narrative: General: Denies fever, chills, fatigue, malaise, sweats. HEENT: Denies sinus pain, ear pain, sore throat, difficulty swallowing, dizziness. (+) discomfort in tongue and mild swelling. Pain increases with eating. Respiratory: Denies dyspnea, cough, wheezing, hemoptysis, sputum. Cardiovascular: Denies chest pain, palpitations, orthopnea, edema. Gastrointestinal: Denies nausea, vomiting, abdominal pain, diarrhea, constipation, melena. : Denies dysuria, frequency, incontinence, hematuria, urinary retention. Musculoskeletal: Denies weakness, joint pain or bony pain. Skin: Denies rash, skin lesions, or other. Neurologic: Denies weakness, headache, numbness, change in speech, confusion, seizures, incoordination. Psychiatric: No concerning psychosocial issues. 12-point review of systems is negative except for those stated above. Patient History <JOSE Adams - Last Filed: 07/25/19 21:13> Medical History Alcohol related seizure (Chronic) Atrial fibrillation (Chronic) Dyslipidemia (Chronic) Pneumonia (Acute) Surgical History H/O thumb surgery (Resolved) Social History Smoking Status: Current every day smoker alcohol intake: former substance use type: does not use Smoking Status: Current every day smoker alcohol intake frequency: other Substance Use Type: does not use Exam <JOSE Adams - Last Filed: 07/25/19 21:13> Narrative Exam Narrative: General appearance: well developed, well nourished, in no acute distress. Head: normocephalic, atraumatic, no scalp lesions, non-tender. ENT: Bilateral auditory canals and tympanic membranes clear. Hearing grossly intact. Nose without bleeding, purulent discharge. Facial sinuses nontender to palpate. Mucous membrane moist. Tongue with thick yellow patch over lateral and central region. About 2 cm laceration on left lateral side of the tongue worse on the inferior aspect with bluish discoloration. Throat without erythema, tonsillar hypertrophy or exudate. Uvula in midline, airway patent, is able to manage his oral depression without difficulty. Neck/Thyroid: neck supple, full range of motion, no visible masses or meningeal signs. No JVD, non-tender without lymphadenopathy. Skin: no suspicious rashes, lesions over visible areas. Warm and dry and appropriate color for ethnicity. Heart: no clubbing, no cyanosis, no edema. S1 and S2 normal. RRR w/o murmurs, clicks, or bruits. Lungs: Breathing even and unlabored. No stridor. No accessory muscles used. Able to speak in full sentences. Chest: normal shape and expansion. Abdomen: non-obese, non-distended. Neurologic: alert and oriented. Cognitive exam, [employer] and PNS grossly intact on informal exam. Psych: good eye contact, normal affect. Initial Vital Signs Initial Vital Signs: Vital Signs Temperature 98.9 F 07/25/19 11:37 Pulse Rate 83 07/25/19 11:37 Respiratory Rate 15 07/25/19 11:37 Blood Pressure 169/89 H 07/25/19 11:37 Pulse Oximetry 99 07/25/19 11:37 <Ankit Marinelli DO - Last Filed: 07/26/19 06:59> Initial Vital Signs Initial Vital Signs: Vital Signs Temperature 98.9 F 07/25/19 11:37 Pulse Rate 83 07/25/19 11:37 Respiratory Rate 15 07/25/19 11:37 Blood Pressure 169/89 H 07/25/19 11:37 Pulse Oximetry 99 07/25/19 11:37 Scores <Sukhdev JOSE Baum - Last Filed: 07/25/19 21:13> GCS Blanchard coma scale eye opening: Spontaneous Blanchard coma scale verbal response: Orientated Blanchard coma scale motor response: Obey commands Malcolm coma scale total score: 15 Course <Sukhdev Baum JOSE - Last Filed: 07/25/19 21:13> Vital Signs Vital signs: Vital Signs - 8 hr 07/25/19 13:18 Temperature 99.1 F Pulse Rate 103 H Blood Pressure 160/93 H Pulse Oximetry 99 <Ankit Marinelli DO - Last Filed: 07/26/19 06:59> Vital Signs Vital signs: Vital Signs - 8 hr 07/25/19 13:18 Temperature 99.1 F Pulse Rate 103 H Blood Pressure 160/93 H Pulse Oximetry 99 MDM - Dental/Oral <Sukhdev Baum JOSE - Last Filed: 07/25/19 21:13> Differential Diagnosis Differential diagnosis: Likely other (thrush, tongue laceration, delayed healig of tongue laceration vs. infection) Medical Records Attestation: I reviewed the patient's medical records. [facility] Narrative Medical decision making narrative: Patient's oral/mucous membrane physical exam is not quite consistent with thrush. There is no obvious white patches on his tongue. There is moderate laceration to left lateral tongue with delayed healing. There is no purulent discharge from the tongue, no significant swelling appreciated today. Patient is afebrile and actually hypertensive today. The patient's tongue was evaluated by Dr. Marinelli at the bedside. Patient discharged to home with chlorhexidine oral rinse to use. Laceration is not suturable at this time with initial injury was done on 07/19/19. Patient advised to follow-up with PCP and dentist next a couple of days for re-evaluation and patient verbalized understanding. Strict return precautions were discussed with patient and spouse and agrees with the treatment plan. Discharge Plan Departure Patient Disposition: Home Clinical Impression: Laceration of tongue Qualifiers: Encounter type: sequela Qualified Code(s): S01.512S - Laceration without foreign body of oral cavity, sequela Discharge Date/Time: 07/25/19 13:19 Activity Restrictions/Additional Instructions: You have been diagnosed with [tongue laceration and oral lesions. You can continue to use Clotramazole. You can continue to use Dexametasone if there's swelling.]. What to do: *Take your medications as directed. Please start using chlorhexidine oral rinse twice a day. Swish it for 30 seconds and expectorates and avoid eating or drinking for 30 seconds after this. You can clean her tongue with gauze gently. Chlorhexidine has been transmitted to Jaden Cain at [place] [facility]. *Follow up with your primary care provider and dentist in 2-3 days, call for an appointment. Let them know you were seen in the ED and that we asked you to be seen in follow up. *Return to ED if you have any new, worsening, or concerning symptoms, such as [fever, increasing pain, purulent discharge, chest pain, unable to tolerate fluids, breathing difficulty or any acute concerns]. Prescriptions: New chlorhexidine gluconate 0.12 % mouthwash 15 ml BUCCAL BID Qty: 473 RF: 0 No Action trazodone 100 MG tablet 100 mg PO DAILY Qty: 0 RF: 0 losartan 50 MG tablet 50 mg PO DAILY Qty: 0 RF: 0 Inderal XL 80 MG capsule,extended release 24hr 80 mg PO QDAY Qty: 0 RF: 0 phenytoin sodium extended [Dilantin Extended] 100 mg Capsule 100 mg PO TID RF: 0 rosuvastatin [Crestor] 40 mg Tablet 40 mg PO DAILY RF: 0 aspirin [Aspirin Low Dose] 81 mg Tablet,Delayed Release (Dr/Ec) 81 mg PO DAILY RF: 0 Adults Multivitamin RF: 0 vitamin B complex [Super B-50 Complex] Capsule 1 cap PO DAILY RF: 0 clotrimazole 10 mg rhett 10 mg MM 5XD Qty: 50 RF: 0 dexamethasone 0.5 mg/5 mL solution 0.5 mg PO TID Qty: 150 RF: 0 zolpidem 10 mg tablet 5 mg PO BEDTIME RF: 0 Referrals: Bill Leo MD [Primary Care Provider] - <Ankit Marinelli, DO - Last Filed: 07/26/19 06:59> Sign Out Provider Sign Out Attestation: Dr Marinelli Co-Sign Statement: I was available for consultation during this patient's emergency department visit. This chart is signed by myself for administrative purposes only. I did not have direct contact with this patient during this visit. They were seen independently by the APC.
== END 2019-07-25 13:19 | disposition home or self-care (01) ==
PROVIDERS: Emergency Provider Nurse Practitioner Family; Family Provider Family Medicine; PCP Family Medicine
DX: S01.5 Open wound of lip and oral cavity (principal)
CPT/HCPCS: 99281; 99283

== ENCOUNTER 2021-11-03 17:01 | Inpatient (IN) | payer OTHER, SELFPAY ==
[2021-11-03] VITALS (34 sets, daily range): BP systolic 104–161; BP diastolic 51–91; PULSE 99–138; RESP 18–28; TEMP 36.7–37.3; O2SAT 95–99; BMI 30.1; BMI 30.2
--- NOTE | 2021-11-03 17:23 | DI.RAD.S_ITS ---
PROCEDURE: XR CHEST 1V INDICATIONS: chest pain TECHNIQUE: One view of the chest was acquired. COMPARISON: [facility], CR, XR CHEST 1V, 09/09/2018, 7:54. FINDINGS: Surgical changes and devices: None. Lungs and pleura: Lungs are clear. No pleural effusions or pneumothorax. Mediastinum: Mediastinal contours appear normal. Heart size is normal. Bones and chest wall: No suspicious bony lesions. Overlying soft tissues appear unremarkable. IMPRESSION: No acute cardiopulmonary disease process. Dictated by: Adilene Miller MD, PhD on 11/03/2021 at 18:26 Approved by: Adilene Miller MD, PhD on 11/03/2021 at 18:26
[2021-11-03 17:52] LABS: Add Manual Diff / Slide Review NO; Basophils Absolute Auto 100 /uL (0-100); Basophils Percent Auto 0.8 % (0-2); Eosinophils Absolute Auto 100 /uL (0-450); Hematocrit 38.2 % (41-53); Hemoglobin 13.2 g/dL (13.5-17.5); Lymphocytes Absolute Auto 2700 /uL (1100-4500); Lymphocytes Percent Auto 25.8 % (25-40); Mean Corpuscular HGB Conc 34.5 % (30-36); Mean Corpuscular Hemoglobin 30.5 PG (26-34); Mean Corpuscular Volume 88.4 fL (80-100); Monocytes Absolute Auto 800 /uL (0-900); Monocytes Percent Auto 7.1 % (3-14); Neutrophils Absolute Auto 6900 /uL (1500-7000); Neutrophils Percent Auto 65.3 % (50-75); Platelet Count 286 X10^3/uL (150-400); Red Blood Cell Count 4.32 X10^6/uL (4.5-5.9); Red Cell Distribution Width 13.1 % (11.6-14.8); White Blood Cell Count 10.6 X10^3/uL (4.5-11.0)
[2021-11-03 17:54] LABS: Alanine Aminotransferase 27 IU/L (<50); Albumin 4.2 g/dL (3.5-5.0); Albumin Globulin Ratio 1.5 (1.0-2.8); Alkaline Phosphatase 91 U/L (38-126); Aspartate Aminotransferase 48 IU/L (17-59); BUN Creatinine Ratio 11.8 (6-22); Bilirubin Total 0.4 mg/dL (0.2-1.3); Blood Urea Nitrogen 10 mg/dL (9-20); Calcium 8.7 mg/dL (8.4-10.2); Carbon Dioxide 27 mmol/L (22-32); Chloride 100 mmol/L (98-107); Creatine Kinase 134 U/L (55-170); Estimated Glomerular Filt Rate > 60 mL/min (>60); Globulin 2.8 g/dL (1.7-4.1); Glucose 139 mg/dL (80-110); Lipase 58 U/L (23-300); Potassium 3.9 mmol/L (3.4-5.1); Sodium 136 mmol/L (137-145)
[2021-11-03 18:08] LABS: CKMB % Relative Index 1.5 % (1.5-5.0); Creatine Kinase MB 2.04 ng/mL (<2.37)
[2021-11-03 18:13] LABS: HEMOLYSIS 60 (0-50)
--- NOTE | 2021-11-03 18:30 | ED.ARRPALP ---
HPI - Arrhythmia/Palpitations General Chief Complaint: Arrhythmia/Palpitations Stated Complaint: AFIB Time Seen by Provider: 11/03/21 17:46 Source: patient Mode of arrival: Ambulatory History of Present Illness HPI narrative: 61-year-old male daily smoker with history of hypertension and atrial fibrillation presents with his in the chief complaint of palpitations and exertional fatigue over the past 2 days or so. He has known paroxysmal AFib but takes only aspirin due to a low chads Vasc score. He admittedly frequently he forgets to take his metoprolol for rate control and has for gotten a few times towards the end of the week, he admits on Wednesday he had a rather large amount of alcohol to drink and the symptoms consistent with AFib started sometime over the night or into the morning. He denies chest pain. He has had no fever chills and denies nausea or vomiting. Related Data Home Medications Medication Instructions Recorded Confirmed losartan 50 mg tablet 50 mg PO DAILY #0 01/11/17 07/25/19 propranolol 80 mg capsule,extended 80 mg PO QDAY #0 01/11/17 09/09/18 release 24 hr (Inderal XL) trazodone 100 mg tablet 100 mg PO DAILY #0 01/11/17 07/25/19 Adults Multivitamin 09/09/18 aspirin 81 mg tablet,delayed 81 mg PO DAILY 09/09/18 09/09/18 release (Aspirin Low Dose) phenytoin sodium extended 100 mg 100 mg PO TID 09/09/18 07/25/19 capsule (Dilantin Extended) rosuvastatin 40 mg tablet (Crestor) 40 mg PO DAILY 09/09/18 07/25/19 vitamin B complex (Super B-50 1 cap PO DAILY 09/09/18 09/09/18 Complex) zolpidem 10 mg tablet 5 mg PO BEDTIME 07/25/19 07/25/19 Previous Rx's Medication Instructions Recorded clotrimazole 10 mg rhett 10 mg MM 5XD #50 tab 07/22/19 dexamethasone 0.5 mg/5 mL oral 0.5 mg (5 mL) PO TID #150 ml 07/23/19 solution chlorhexidine gluconate 0.12 % 15 ml BUCCAL BID #473 ml 07/25/19 mouthwash Allergies Allergy/AdvReac Type Severity Reaction Status Date / Time No Known Drug Allergies Allergy Verified 07/25/19 11:37 Review of Systems Review of Systems Narrative: GENERAL: Denies chills, fatigue, malaise, fever, sweats. HEENT: Denies sinus pain, ear pain, sore throat, difficulty swallowing, dizziness. RESPIRATORY: See HPI CARDIOVASCULAR: See HPI GASTROINTESTINAL: Denies nausea, vomiting, abdominal pain, diarrhea, constipation, melena. : Denies dysuria, frequency, incontinence, hematuria, urinary retention. MUSCULOSKELETAL: denies weakness, joint pain, or bony pain SKIN: Denies rash, skin lesions, or other NEUROLOGIC: Denies weakness, headache, numbness, change in speech, confusion, seizures, incoordination. PSYCHIATRIC: No concerning psychosocial issues. 12 point review of systems is negative except for those stated above Patient History Medical History (Updated 11/04/21 @ 04:05 by Deep Cronin DO) Alcohol related seizure Atrial fibrillation Dyslipidemia Pneumonia Surgical History H/O thumb surgery Family History Father Myocardial infarction Mother Alzheimer's dementia Brother Neimann Pick disease Social History household members: spouse and children Smoking Status: Current every day smoker alcohol intake: former substance use type: does not use Smoking Status: Current every day smoker tobacco type: cigarettes alcohol intake frequency: a few times a month Substance Use Type: does not use Exam Narrative Exam Narrative: GENERAL: [61] year old patient appears stated age. Well-developed patient, in mild distress. HEAD: Atraumatic. Normocephalic. EYES: Pupils equal round and reactive. Extraocular motions intact. No scleral icterus. No injection or drainage. ENT: Nose without bleeding, purulent drainage. Throat without erythema, tonsillar hypertrophy or exudate. Airway patent. NECK: Trachea midline. Non tender CARDIOVASCULAR: Tachycardic and irregular rhythm without murmurs, gallops, or rubs. RESPIRATORY: Clear to auscultation. Breath sounds equal bilaterally. No wheezes, rales, or rhonchi. GASTROINTESTINAL: Abdomen soft, non-tender, nondistended. EXTREMITIES: No edema or joint tenderness. BACK: Nontender without deformity or crepitance. No flank tenderness. NEURO: AOx3. SKIN: No rash or erythema of visible areas Initial Vital Signs Initial Vital Signs: Vital Signs Temperature 99.1 F 11/03/21 17:19 Pulse Rate 99 H 11/03/21 17:19 Respiratory Rate 18 11/03/21 17:19 Blood Pressure 129/69 11/03/21 17:19 Pulse Oximetry 98 11/03/21 17:19 Course Orders Ordered: ED Orders 11/03/21 19:20 COVID19 -Nasal RAPID/Pre-Proc Stat Acetaminophen (Acetaminophen 325 Mg Tablet) 650 mg PO Q6HR PRN PRN Reason: Fever/Mild Pain (1-3) Apixaban (Apixaban 5 Mg Tablet) 5 mg PO BID GENET Atorvastatin Calcium (Atorvastatin 20 Mg Tablet) 80 mg PO DAILY GENET Folic Acid (Folic Acid 1 Mg Tablet) 1 mg PO DAILY GENET DILTIAZEM (Diltiazem 125 Mg/125 Ml-D5w) 125 mg in 125 mls @ 5 mls/hr IV TITRATE ONE; Protocol Stop: 11/05/21 00:44 Last Titration: 11/03/21 23:58 Dose: 15 mg/hr, 15 mls/hr Documented by: Admin: 11/03/21 23:57 Dose: 5 mg/hr, 5 mls/hr Documented by: KOREYTE Sodium Chloride (Normal Saline 0.9%) 250 mls @ 21 mls/hr IV Q24H PRN PRN Reason: Flush Last Admin: 11/04/21 03:50 Dose: 21 mls/hr Documented by: GUNNAR Lorazepam (Lorazepam 1 Mg Tablet) 0 mg PO CIWAPRN PRN; Protocol PRN Reason: Alcohol Withdrawal Multivitamins (Multivitamin 1 Tablet) 1 tab PO DAILY GENET Nicotine (Nicotine 14 Patch) 14 mg TOP DAILY GENET Last Admin: 11/03/21 23:51 Dose: 14 mg Documented by: UGNNAR Ondansetron HCl (Ondansetron 4 Mg/2 Ml Inj) 4 mg IV Q6HR PRN PRN Reason: Nausea And Vomiting Pantoprazole Sodium (Pantoprazole 40 Mg Vial) 40 mg IV DAILY GENET Phenytoin Sodium (Phenytoin Er 100 Mg Capsule) 100 mg PO TID GENET Thiamine HCl (Thiamine 100 Mg Tablet) 100 mg PO DAILY GENET Stop: 11/07/21 09:01 Discontinued Medications Diltiazem HCl (Diltiazem 5 Mg/Ml Sdv) 10 mg IV NOW ONE Stop: 11/03/21 18:43 Last Admin: 11/03/21 18:59 Dose: 10 mg Documented by: ATAYLOR Enoxaparin Sodium (Enoxaparin 40 Mg/0.4 Ml Syringe) 40 mg SUBCUT DAILY GENET Enoxaparin Sodium (Enoxaparin 40 Mg/0.4 Ml Syringe) 40 mg SUBCUT NOW ONE Stop: 11/03/21 22:45 Last Admin: 11/03/21 23:16 Dose: 40 mg Documented by: GUNNAR DILTIAZEM (Diltiazem 125 Mg/125 Ml-D5w) 125 mg in 125 mls @ 5 mls/hr IV TITRATE ONE; Protocol Stop: 11/04/21 19:44 Last Titration: 11/03/21 21:50 Dose: 15 mg/hr, 15 mls/hr Documented by: Titration: 11/03/21 20:38 Dose: 15 mg/hr, 15 mls/hr Documented by: Titration: 11/03/21 19:39 Dose: 10 mg/hr, 10 mls/hr Documented by: Admin: 11/03/21 19:11 Dose: 5 mg/hr, 5 mls/hr Documented by: ATAYLOR Reevaluation(s) Reevaluation #1: Rate demonstrates improved control with Cardizem drip Vital Signs Vital signs: Vital Signs - 8 hr 11/03/21 20:05 11/03/21 20:10 11/03/21 20:15 Pulse Rate 127 H 130 H 132 H Respiratory Rate 20 20 Blood Pressure 133/69 124/77 133/79 Pulse Oximetry 97 97 95 11/03/21 20:20 11/03/21 20:26 11/03/21 20:30 Pulse Rate 134 H 128 H 124 H Respiratory Rate 20 28 H 20 Blood Pressure 136/72 136/51 L 106/60 Pulse Oximetry 97 11/03/21 20:35 11/03/21 20:40 11/03/21 20:45 Pulse Rate 126 H 127 H 126 H Respiratory Rate 20 24 20 Blood Pressure 113/63 132/66 128/68 Pulse Oximetry 98 98 97 11/03/21 21:00 11/03/21 21:15 Pulse Rate 119 H 116 H Respiratory Rate 24 26 H Blood Pressure 104/68 135/64 Pulse Oximetry 98 96 MDM - Arrhythmia/Palpitations Lab Data Result diagrams: 11/03/21 17:29 11/03/21 17:29 Labs: Lab Results 11/03/21 11/03/21 11/03/21 Range/Units 17:29 17:29 17:29 WBC 10.6 (4.5-11.0) X10^3/uL RBC 4.32 L (4.5-5.9) X10^6/uL Hgb 13.2 L (13.5-17.5) g/dL Hct 38.2 L (41-53) % MCV 88.4 (80-100) fL MCH 30.5 (26-34) PG MCHC 34.5 (30-36) % RDW 13.1 (11.6-14.8) % Plt Count 286 (150-400) X10^3/uL Neut % (Auto) 65.3 (50-75) % Lymph % (Auto) 25.8 (25-40) % [place] % (Auto) 7.1 (3-14) % Eos % (Auto) 1.0 L (2-4) % Baso % (Auto) 0.8 (0-2) % Neut # (Auto) 6900 (8247-8879) /uL Lymph # (Auto) 2700 (5802-6141) /uL [place] # (Auto) 800 (0-900) /uL Eos # (Auto) 100 (0-450) /uL Baso # (Auto) 100 (0-100) /uL Sodium 136 L (137-145) mmol/L Potassium 3.9 (3.4-5.1) mmol/L Chloride 100 (98-107) mmol/L Carbon Dioxide 27 (22-32) mmol/L BUN 10 (9-20) mg/dL Creatinine 0.85 (0.66-1.25) mg/dL Estimated GFR > 60 (>60) mL/min BUN/Creatinine Ratio 11.8 (6-22) Glucose 139 H (80-110) mg/dL Hemoglobin A1c (4.0-6.0) % Calcium 8.7 (8.4-10.2) mg/dL Magnesium 2.0 (1.6-2.3) mg/dL Total Bilirubin 0.4 (0.2-1.3) mg/dL AST 48 (17-59) IU/L ALT 27 (<50) IU/L Alkaline Phosphatase 91 (38-126) U/L Total Creatine Kinase 134 (55-170) U/L CK-MB (CK-2) 2.04 (<2.37) ng/mL CK-MB (CK-2) Rel Index 1.5 (1.5-5.0) % Troponin I 0.020 (0.01-0.034) ng/mL Total Protein 7.0 (6.3-8.2) g/dL Albumin 4.2 (3.5-5.0) g/dL Globulin 2.8 (1.7-4.1) g/dL Albumin/Globulin Ratio 1.5 (1.0-2.8) Lipase 58 (23-300) U/L Phenytoin < 3.0 L (10-20) ug/mL SARS-CoV-2 (PCR) (Negative) 11/03/21 11/03/21 Range/Units 17:29 19:20 WBC (4.5-11.0) X10^3/uL RBC (4.5-5.9) X10^6/uL Hgb (13.5-17.5) g/dL Hct (41-53) % MCV (80-100) fL MCH (26-34) PG MCHC (30-36) % RDW (11.6-14.8) % Plt Count (150-400) X10^3/uL Neut % (Auto) (50-75) % Lymph % (Auto) (25-40) % Shawnee % (Auto) (3-14) % Eos % (Auto) (2-4) % Baso % (Auto) (0-2) % Neut # (Auto) (9886-4673) /uL Lymph # (Auto) (4203-5800) /uL Shawnee # (Auto) (0-900) /uL Eos # (Auto) (0-450) /uL Baso # (Auto) (0-100) /uL Sodium (137-145) mmol/L Potassium (3.4-5.1) mmol/L Chloride (98-107) mmol/L Carbon Dioxide (22-32) mmol/L BUN (9-20) mg/dL Creatinine (0.66-1.25) mg/dL Estimated GFR (>60) mL/min BUN/Creatinine Ratio (6-22) Glucose (80-110) mg/dL Hemoglobin A1c 5.4 (4.0-6.0) % Calcium (8.4-10.2) mg/dL Magnesium (1.6-2.3) mg/dL Total Bilirubin (0.2-1.3) mg/dL AST (17-59) IU/L ALT (<50) IU/L Alkaline Phosphatase (38-126) U/L Total Creatine Kinase (55-170) U/L CK-MB (CK-2) (<2.37) ng/mL CK-MB (CK-2) Rel Index (1.5-5.0) % Troponin I (0.01-0.034) ng/mL Total Protein (6.3-8.2) g/dL Albumin (3.5-5.0) g/dL Globulin (1.7-4.1) g/dL Albumin/Globulin Ratio (1.0-2.8) Lipase (23-300) U/L Phenytoin (10-20) ug/mL SARS-CoV-2 (PCR) Negative (Negative) Imaging Data Chest x-ray: Radiologist's Impresson: Close Chest X-Ray (Signed) Adilene Miller - 11/03/21 Shoulder X-Ray (Signed) Alvarez May - 02/07/19 Chest X-Ray (Signed) Alvarez May - 09/09/18 Radiology - Historical 03/03/17 Radiology - Historical 01/11/17 Radiology - Historical 01/11/17 Radiology - Historical 01/11/17 Radiology - Historical 06/05/16 Launch?[address] [address] XRay Report Signed Patient: Prakash Cameron MR#: [id number] : 1960 Acct:[id number] Age/Sex: 61 / M Date of Service: 11/03/21 Loc: ED Accession Number: [id number] ?? Procedure: XR chest 1V Ordering Provider: Najma Potts MD PROCEDURE:? XR CHEST 1V ? INDICATIONS:? chest pain ? TECHNIQUE:? One view of the chest was acquired.? ? COMPARISON:? [facility], CR, XR CHEST 1V, 09/09/2018, 7:54. ? FINDINGS:? ? Surgical changes and devices:? None.? ? Lungs and pleura:? Lungs are clear.? No pleural effusions or pneumothorax.? ? Mediastinum:? Mediastinal contours appear normal.? Heart size is normal.? ? Bones and chest wall:? No suspicious bony lesions.? Overlying soft tissues appear unremarkable.? ? IMPRESSION:? No acute cardiopulmonary disease process. ? ? Dictated by: Adilene Miller MD, PhD on 11/03/2021 at 18:26 ? ? Approved by: Adilene Miller MD, PhD on 11/03/2021 at 18:26 ? MDM Narrative Medical decision making narrative: Patient with known paroxysmal atrial fibrillation, not on anticoagulation presents with palpitations and exertional fatigue. He is not in extremis, does not take anticoagulation, symptoms have been greater than 48 hours and is therefore not a candidate for anticoagulation. He will require hospitalization for rate control Discharge Plan Departure Patient Disposition: Admitted As Inpatient Clinical Impression: Atrial fibrillation with rapid ventricular response Admit Date/Time: 11/03/21 21:29 Admit Provider: Geovanna Steele
[2021-11-03] MEDS: dilTIAZem 5 MG/ML SDV 10 MG IV (18:59)
[2021-11-03] MEDS: DILTIAZEM 125 MG/125 ML PIGGYBACK IV ×2 (19:11→23:57)
[2021-11-03 19:43] LABS: COVID19 -Nasal RAPID Negative (Negative)
--- NOTE | 2021-11-03 23:03 | PM.HP.1 ---
History of Present Illness History of Present Illness Date Patient Seen: 11/03/21 Time Patient Seen: 22:30 Chief complaint: AFIB Narrative: Prakash Cameron is a 61-year-old male with a history of alcohol use disorder, was apparently experiencing his heart pounding. He was walking and then could not walk across his home and he felt like he was going to actually ?crash?. He stated that it worsened today felt lightheaded. He did is drink a pt of vodka over the weekend he states he is an alcoholic and has relapsed. 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 He denies fevers sweats or chills, chest pain, just heavyness, nausea or vomiting, abdominal pain, dysuria, diarrhea constipation, neuropathies of the upper lower extremities. Chest x-ray ordered in the emergency department was negative for any acute cardiopulmonary process. EKG showed atrial fibrillation with RVR. He is afebrile, blood pressure 110/66, heart rate 124, respiratory rate 27 oxygen saturation of 95% on room air he weighs 95.5 kg with a BMI of 30.2. Is mildly anemic with a hemoglobin and hematocrit of 13.2 and 38.2 respectively, sodium was 136, glucose 139 troponin 0.020, phenytoin level was low at 3.0 and COVID-19 PCR is negative. Patient History Medical History Alcohol related seizure Atrial fibrillation Dyslipidemia Pneumonia Surgical History H/O thumb surgery Family & Social History Social History: household members spouse,children Prior Living Arrangements House Safety & Behavioral: Feels Safe in Current Yes Environment Been Physically Hurt or No Threatened By a Person Tobacco & Substance use: Tobacco type cigarettes Smoking Status Current every day smoker Smoking packs per day 1 alcohol intake current alcohol intake frequency pint of vodka on weekend days Substance Use Type does not use Meds Home Medications and Allergies Home Medications Medication Instructions Recorded Confirmed Type losartan 50 mg tablet 50 mg PO DAILY #0 01/11/17 07/25/19 History propranolol 80 mg capsule,extended 80 mg PO QDAY #0 01/11/17 09/09/18 History release 24 hr (Inderal XL) trazodone 100 mg tablet 100 mg PO DAILY #0 01/11/17 07/25/19 History Adults Multivitamin 09/09/18 History aspirin 81 mg tablet,delayed 81 mg PO DAILY 09/09/18 09/09/18 History release (Aspirin Low Dose) phenytoin sodium extended 100 mg 100 mg PO TID 09/09/18 07/25/19 History capsule (Dilantin Extended) rosuvastatin 40 mg tablet (Crestor) 40 mg PO DAILY 09/09/18 07/25/19 History vitamin B complex (Super B-50 1 cap PO DAILY 09/09/18 09/09/18 History Complex) clotrimazole 10 mg rhett 10 mg MM 5XD #50 tab 07/22/19 Rx dexamethasone 0.5 mg/5 mL oral 0.5 mg (5 mL) PO TID #150 ml 07/23/19 Rx solution chlorhexidine gluconate 0.12 % 15 ml BUCCAL BID #473 ml 07/25/19 Rx mouthwash zolpidem 10 mg tablet 5 mg PO BEDTIME 07/25/19 07/25/19 History Allergies Allergy/AdvReac Type Severity Reaction Status Date / Time No Known Drug Allergies Allergy Verified 07/25/19 11:37 Review of Systems Review of Systems ROS: Yes All systems reviewed with the patient and are negative except as otherwise documented Exam Vital Signs (past 8 hours): - 11/03/21 17:19 11/03/21 18:15 11/03/21 18:30 Temperature 99.1 F Pulse Rate 99 H 113 H 130 H Respiratory Rate 18 26 H Blood Pressure 129/69 125/73 120/64 Pulse Oximetry 98 96 97 11/03/21 19:00 11/03/21 19:02 11/03/21 19:06 Temperature Pulse Rate 130 H 138 H 130 H Respiratory Rate 25 H 24 23 Blood Pressure 124/79 160/91 H Pulse Oximetry 98 98 98 11/03/21 19:10 11/03/21 19:17 11/03/21 19:21 Temperature Pulse Rate 127 H 128 H 133 H Respiratory Rate 19 23 Blood Pressure 127/72 161/75 H 159/71 H Pulse Oximetry 98 11/03/21 19:25 11/03/21 19:30 11/03/21 19:35 Temperature Pulse Rate 126 H 131 H 128 H Respiratory Rate 24 Blood Pressure 145/67 H 133/77 130/75 Pulse Oximetry 99 11/03/21 19:40 11/03/21 19:45 11/03/21 19:50 Temperature Pulse Rate 126 H 131 H 128 H Respiratory Rate Blood Pressure 135/89 150/80 H 128/65 Pulse Oximetry 99 97 11/03/21 19:55 11/03/21 20:00 11/03/21 20:05 Temperature Pulse Rate 135 H 128 H 127 H Respiratory Rate Blood Pressure 138/71 132/75 133/69 Pulse Oximetry 98 97 97 11/03/21 20:10 11/03/21 20:15 11/03/21 20:20 Temperature Pulse Rate 130 H 132 H 134 H Respiratory Rate 20 20 20 Blood Pressure 124/77 133/79 136/72 Pulse Oximetry 97 95 11/03/21 20:26 11/03/21 20:30 11/03/21 20:35 Temperature Pulse Rate 128 H 124 H 126 H Respiratory Rate 28 H 20 20 Blood Pressure 136/51 L 106/60 113/63 Pulse Oximetry 97 98 11/03/21 20:40 11/03/21 20:45 11/03/21 21:00 Temperature Pulse Rate 127 H 126 H 119 H Respiratory Rate 24 20 24 Blood Pressure 132/66 128/68 104/68 Pulse Oximetry 98 97 98 11/03/21 21:15 11/03/21 21:30 11/03/21 22:00 Temperature 98.0 F Pulse Rate 116 H 117 H 118 H Respiratory Rate 26 H 25 H 24 Blood Pressure 135/64 131/79 131/88 Pulse Oximetry 96 96 97 11/03/21 22:46 Temperature 98.0 F Pulse Rate Respiratory Rate Blood Pressure Pulse Oximetry Oxygen Delivery Method Room Air Narrative Exam Narrative: Gen: Alert, oriented, well-developed 61 y.o. male, anxious HEENT: normocephalic, atraumatic, conjunctiva clear, sclera non-icteric, oral mucosa pink and moist Neck: supple, full ROM, no JVD, trachea is midline Resp: Lungs CTA, non-labored breathing CV: irregularly irregular, no murmur or rubs Abd: soft, non-tender, normoactive BTs Skin: no lesions or rashes, dry and intact Neuro: Alert and oriented X 4 w/no focal deficits. Speech clear and coherent. Extremities: moves all 4 extremities, is ambulatory, negative Cathryn?s sign Psyche: normal mood and affect. Objective Labs Result Diagrams: 11/03/21 17:29 11/03/21 17:29 Labs: Laboratory Results - last 24 hr 11/03/21 11/03/21 11/03/21 17:29 17:29 19:20 WBC 10.6 RBC 4.32 L Hgb 13.2 L Hct 38.2 L MCV 88.4 MCH 30.5 MCHC 34.5 RDW 13.1 Plt Count 286 Neut % (Auto) 65.3 Lymph % (Auto) 25.8 [place] % (Auto) 7.1 Eos % (Auto) 1.0 L Baso % (Auto) 0.8 Neut # (Auto) 6900 Lymph # (Auto) 2700 [place] # (Auto) 800 Eos # (Auto) 100 Baso # (Auto) 100 Sodium 136 L Potassium 3.9 Chloride 100 Carbon Dioxide 27 BUN 10 Creatinine 0.85 Estimated GFR > 60 BUN/Creatinine Ratio 11.8 Glucose 139 H Calcium 8.7 Magnesium 2.0 Total Bilirubin 0.4 AST 48 ALT 27 Alkaline Phosphatase 91 Total Creatine Kinase 134 CK-MB (CK-2) 2.04 CK-MB (CK-2) Rel Index 1.5 Troponin I 0.020 Total Protein 7.0 Albumin 4.2 Globulin 2.8 Albumin/Globulin Ratio 1.5 Lipase 58 SARS-CoV-2 (PCR) Negative Assessment & Plan Assessment & Plan narrative: Prakash Cameron is a 61-year-old male admitted to the intensive care unit for treatment and management of atrial fibrillation with a rapid ventricular rate. 1. Atrial fibrillation with a rapid ventricular rate, new and present on admission He arrived to the floor on diltiazem starting rated 5 per hour satellite project site monitor [facility] involved in his care 2. Alcohol to dependency at risk for severe withdrawal, present on admission CIWA protocol 3. Tobacco use disorder, present on admission States he smokes 1 pack per day Nicoderm patch 14 mcg change daily 3. Essential hypertension, he is currently hypotensive Resume home doses of losartan and metoprolol in the morning if his blood pressure can support it 4. Dyslipidemia, chronic Continue home dose of rosuvastatin 40 mg p.o. daily 5. Seizure disorder, subtherapeutic phenytoin level Phenytoin level was 3 and normal limit is 7 He will resume phenytoin 100 mg b.i.d. VTE Prophylaxis: Wells risk score 1.5 [X] Bilateral SCDs he will receive 1 dose of Lovenox 40 mg tonight and start on apixaban 5 mg b.i.d. in the morning. Patient is admitted to the inpatient intensive care unit due to the severity of disease, risks of further disease progression and this stay is expected to exceed 2 midnights. FEN: IV fluids: on diltiazem drip, diet: heart healthy, labs: CBC, C/BMP, liver enzymes, [facility], care and involvement in the patient?s care is appreciated. Dispo: probable discharge to home Code status: Full code as discussed with the patient who identifies his , Cherrie as his surrogate and POA. [X] I have utilized all available immediate resources to obtain, update, or review of the patient's current medications COVID-19 COVID-19 status: Negative Result date/Date tested (Pos, Neg/Pending): 11/04/21 Scores Wells' Criteria for PE Clinical signs and symptoms of DVT: No PE is #1 Dx or equally likely: No Heart rate > 100: Yes Immobilization at least 3 days or surg in previous 4 weeks: No History of PE or DVT: No Hemoptysis: No Malignancy w/Treatment within 6 months or palliative: No Wells' PE Score total: 1.5 Quality VTE Deep Vein Thrombosis/Pulmonary Embolism Present on Admission: No MIPS - Admit I confirm the patient?s Advance Care Plan is present, Code status is documented, Surrogate decision maker is in patient?s record [If Yes, STOP here]: Yes MIPS - DC The patient has current or prior documentation of left ventricular ejection fraction (LVEF) less than 40%, or moderate or severely depressed left ventricular systolic function.: No
[2021-11-03] MEDS: ENOXAPARIN 40 MG/0.4 ML SYRINGE SUBCUT (23:16)
--- NOTE | 2021-11-03 23:39 | PM.CN.EICU ---
History of Present Illness Consult details Chief complaint: AFIB Patient Location: ICU Provider location (State): [place] Narrative: 61 y.o. male with 1 ppd tobacco habit, seizure disorder, EtOH abuse, HTN and HLD who presented with palpitations. He also admitted to a recent EtOH relapse. He was in rapid AF with a HR in mid to high 120s. A diltiazem infusion was started which is currently infusing @ 15 mg/hr; HR is in 110s. [facility] Medical History (Updated 11/03/21 @ 23:44 by Aman Alberto MD) Alcohol related seizure Atrial fibrillation Dyslipidemia Pneumonia Surgical History H/O thumb surgery Social History household members: spouse and children Smoking Status: Current every day smoker alcohol intake: former substance use type: does not use Current Medications Current Medications Medications: Home Medications losartan 50 mg tablet 50 mg PO DAILY #0 01/11/17 [History Confirmed 07/25/19] propranolol 80 mg capsule,extended release 24 hr (Inderal XL) 80 mg PO QDAY #0 01/11/17 [History Confirmed 09/09/18] trazodone 100 mg tablet 100 mg PO DAILY #0 01/11/17 [History Confirmed 07/25/19] Adults Multivitamin 09/09/18 [History] aspirin 81 mg tablet,delayed release (Aspirin Low Dose) 81 mg PO DAILY 09/09/18 [History Confirmed 09/09/18] phenytoin sodium extended 100 mg capsule (Dilantin Extended) 100 mg PO TID 09/09/18 [History Confirmed 07/25/19] rosuvastatin 40 mg tablet (Crestor) 40 mg PO DAILY 09/09/18 [History Confirmed 07/25/19] vitamin B complex (Super B-50 Complex) 1 cap PO DAILY 09/09/18 [History Confirmed 09/09/18] clotrimazole 10 mg rhett 10 mg MM 5XD #50 tab 07/22/19 [Rx] dexamethasone 0.5 mg/5 mL oral solution 0.5 mg (5 mL) PO TID #150 ml 07/23/19 [Rx] chlorhexidine gluconate 0.12 % mouthwash 15 ml BUCCAL BID #473 ml 07/25/19 [Rx] zolpidem 10 mg tablet 5 mg PO BEDTIME 07/25/19 [History Confirmed 07/25/19] Visit Medications (administered) Generic Name Dose Route Start Last Admin Trade Name Fariha PRN Reason Stop Dose Admin DILTIAZEM 125 mg in 125 mls @ 5 mls/hr 11/03/21 18:45 11/03/21 21:50 Diltiazem 125 Mg/125 Ml-D5w IV 11/04/21 19:44 15 mg/hr TITRATE ONE 15 mls/hr Titration Protocol 5 MG/HR Exam Vital Signs (past 8 hours): - 11/03/21 17:19 11/03/21 18:15 11/03/21 18:30 Temperature 99.1 F Pulse Rate 99 H 113 H 130 H Respiratory Rate 18 26 H Blood Pressure 129/69 125/73 120/64 Pulse Oximetry 98 96 97 11/03/21 19:00 11/03/21 19:02 11/03/21 19:06 Temperature Pulse Rate 130 H 138 H 130 H Respiratory Rate 25 H 24 23 Blood Pressure 124/79 160/91 H Pulse Oximetry 98 98 98 11/03/21 19:10 11/03/21 19:17 11/03/21 19:21 Temperature Pulse Rate 127 H 128 H 133 H Respiratory Rate 19 23 Blood Pressure 127/72 161/75 H 159/71 H Pulse Oximetry 98 11/03/21 19:25 11/03/21 19:30 11/03/21 19:35 Temperature Pulse Rate 126 H 131 H 128 H Respiratory Rate 24 Blood Pressure 145/67 H 133/77 130/75 Pulse Oximetry 99 11/03/21 19:40 11/03/21 19:45 11/03/21 19:50 Temperature Pulse Rate 126 H 131 H 128 H Respiratory Rate Blood Pressure 135/89 150/80 H 128/65 Pulse Oximetry 99 97 11/03/21 19:55 11/03/21 20:00 11/03/21 20:05 Temperature Pulse Rate 135 H 128 H 127 H Respiratory Rate Blood Pressure 138/71 132/75 133/69 Pulse Oximetry 98 97 97 11/03/21 20:10 11/03/21 20:15 11/03/21 20:20 Temperature Pulse Rate 130 H 132 H 134 H Respiratory Rate 20 20 20 Blood Pressure 124/77 133/79 136/72 Pulse Oximetry 97 95 11/03/21 20:26 11/03/21 20:30 11/03/21 20:35 Temperature Pulse Rate 128 H 124 H 126 H Respiratory Rate 28 H 20 20 Blood Pressure 136/51 L 106/60 113/63 Pulse Oximetry 97 98 11/03/21 20:40 11/03/21 20:45 11/03/21 21:00 Temperature Pulse Rate 127 H 126 H 119 H Respiratory Rate 24 20 24 Blood Pressure 132/66 128/68 104/68 Pulse Oximetry 98 97 98 11/03/21 21:15 11/03/21 21:30 11/03/21 22:00 Temperature 98.0 F Pulse Rate 116 H 117 H 118 H Respiratory Rate 26 H 25 H 24 Blood Pressure 135/64 131/79 131/88 Pulse Oximetry 96 96 97 11/03/21 22:46 Temperature 98.0 F Pulse Rate Respiratory Rate Blood Pressure Pulse Oximetry Oxygen Delivery Method Room Air Const General: cooperative and comfortable Nutritional Appearance: average body habitus and well nourished Resp Effort & Inspection: normal respiratory effort (on RA) and able to speak in complete sentences Cardio Rate: tachycardic Rhythm: abnormal rhythm Objective Labs Result Diagrams: 11/03/21 17:29 11/03/21 17:29 Labs: Laboratory Results - last 24 hr 11/03/21 11/03/21 11/03/21 17:29 17:29 19:20 WBC 10.6 RBC 4.32 L Hgb 13.2 L Hct 38.2 L MCV 88.4 MCH 30.5 MCHC 34.5 RDW 13.1 Plt Count 286 Neut % (Auto) 65.3 Lymph % (Auto) 25.8 [place] % (Auto) 7.1 Eos % (Auto) 1.0 L Baso % (Auto) 0.8 Neut # (Auto) 6900 Lymph # (Auto) 2700 [place] # (Auto) 800 Eos # (Auto) 100 Baso # (Auto) 100 Sodium 136 L Potassium 3.9 Chloride 100 Carbon Dioxide 27 BUN 10 Creatinine 0.85 Estimated GFR > 60 BUN/Creatinine Ratio 11.8 Glucose 139 H Calcium 8.7 Magnesium 2.0 Total Bilirubin 0.4 AST 48 ALT 27 Alkaline Phosphatase 91 Total Creatine Kinase 134 CK-MB (CK-2) 2.04 CK-MB (CK-2) Rel Index 1.5 Troponin I 0.020 Total Protein 7.0 Albumin 4.2 Globulin 2.8 Albumin/Globulin Ratio 1.5 Lipase 58 SARS-CoV-2 (PCR) Negative Assessment & Plan Assessment and plan (1) Atrial fibrillation: Status: Acute Plan: -Continue apixaban/diltiazem infusion -TFTs in AM -Check 2-D echo (2) Seizure disorder: Status: Acute Plan: -Phenytoin (3) Tobacco abuse: Status: Acute Plan: -Transdermail nicotine -Cessation counseling (4) Alcohol abuse: Status: Acute Plan: -CIWA -Cessation counseling
[2021-11-03 23:46] LABS: Phenytoin / Dilantin < 3.0 ug/mL (10-20)
[2021-11-03] MEDS: NICOTINE 14 PATCH 14 MG TOP (23:51)
[2021-11-04] VITALS (43 sets, daily range): BP systolic 92–141; BP diastolic 57–78; PULSE 82–135; RESP 17–48; TEMP 36.3–37; O2SAT 92–98
[2021-11-04 02:02] LABS: Hemoglobin A1C% w Est Avg Glu 5.4 % (4.0-6.0)
[2021-11-04] MEDS: SODIUM CHLORIDE 0.9% 250 ML 21 ML IV ×2 (03:50→15:57)
[2021-11-04 04:45] LABS: Add Manual Diff / Slide Review NO; Basophils Absolute Auto 100 /uL (0-100); Basophils Percent Auto 0.7 % (0-2); Eosinophils Absolute Auto 200 /uL (0-450); Hematocrit 35.5 % (41-53); Hemoglobin 12.3 g/dL (13.5-17.5); Lymphocytes Absolute Auto 2100 /uL (1100-4500); Lymphocytes Percent Auto 23.6 % (25-40); Mean Corpuscular HGB Conc 34.6 % (30-36); Mean Corpuscular Hemoglobin 30.7 PG (26-34); Mean Corpuscular Volume 88.7 fL (80-100); Monocytes Absolute Auto 600 /uL (0-900); Monocytes Percent Auto 7.2 % (3-14); Neutrophils Absolute Auto 5900 /uL (1500-7000); Neutrophils Percent Auto 66.5 % (50-75); Platelet Count 240 X10^3/uL (150-400); Red Cell Distribution Width 13.2 % (11.6-14.8); White Blood Cell Count 8.9 X10^3/uL (4.5-11.0)
[2021-11-04 04:50] LABS: Blood Urea Nitrogen 12 mg/dL (9-20); Calcium 8.6 mg/dL (8.4-10.2); Carbon Dioxide 29 mmol/L (22-32); Chloride 104 mmol/L (98-107); Estimated Glomerular Filt Rate > 60 mL/min (>60); Glucose 105 mg/dL (80-110); HEMOLYSIS < 15 (0-50); Potassium 3.3 mmol/L (3.4-5.1); Sodium 139 mmol/L (137-145)
[2021-11-04 05:08] LABS: Free T4, Direct Thyroxine 1.29 ng/dL (0.78-2.19)
[2021-11-04 05:12] LABS: Magnesium 1.9 mg/dL (1.6-2.3)
[2021-11-04 05:22] LABS: Thyroid Stimulating Hormone 2.69 uIU/mL (0.47-4.68)
[2021-11-04] MEDS: MULTIVITAMIN 1 TABLET 1 TAB PO (08:19)
[2021-11-04] MEDS: APIXABAN 5 MG TABLET PO ×2 (08:19→20:59)
[2021-11-04] MEDS: ATORVASTATIN 20 MG TABLET 80 MG PO (08:19)
[2021-11-04] MEDS: FOLIC ACID 1 MG TABLET PO (08:19)
[2021-11-04] MEDS: THIAMINE 100 MG TABLET PO (08:19)
[2021-11-04] MEDS: DILTIAZEM 125 MG/125 ML PIGGYBACK 17 MG IV (08:19)
[2021-11-04] MEDS: PHENYTOIN ER 100 MG CAPSULE PO ×3 (08:19→20:59)
[2021-11-04] MEDS: PANTOPRAZOLE 40 MG VIAL IV (08:20)
[2021-11-04] MEDS: NICOTINE 14 PATCH 14 MG TOP (08:20)
--- NOTE | 2021-11-04 09:00 | DI.ECHO.S_ITS ---
[facility] +---------+ : : [address] : : : : [id number] : : : : Phone: [phone]+ Echocardiogram Report + + :Name: QUINN MILLARD Study Date: 11/04/2021 Height: 70 in : :[facility] ReadingLocation: Weight: 210 lb : : Gender: Male BSA: 2.1 m2 : :: 1960 Age: 61 yrs BP: 102/62 mmHg: :Reason For Study: ATRIAL FIBRILLATION : :Ordering Physician: Yani SALCEDOformed By: Ailin Yi : :Referring: NATALIIA SALCEDO : + + Interpretation Summary The left ventricle is normal in size. Left ventricular systolic function appears normal without focal wall motion abnormalities. The ejection fraction is estimated to be 60-65%. Diastolic function could not be accurately assessed due to atrial fibrillation. The right ventricle is normal in size and function. The left atrium is mildly dilated. Right atrial size is normal. There is mild aortic regurgitation. There is no other significant valvular heart disease. The ascending aorta is mild-moderately enlarged. The aortic arch is moderately enlarged. Mild RVR due to a-fib. Procedure: A two-dimensional transthoracic echocardiogram with color flow and Doppler was performed. The study quality was technically adequate. Comparison is made with the echocardiogram of 03/11/2016. The patient was in atrial fibrillation with heart rates between 100-127 bpm during the exam. Left Ventricle: The left ventricle is normal in size. Proximal septal thickening is noted. Left ventricular systolic function appears normal without focal wall motion abnormalities. The ejection fraction is estimated to be 60- 65%. Diastolic function could not be accurately assessed due to atrial fibrillation. Right Ventricle: The right ventricle is normal in size and function. Atria: The left atrium is mildly dilated. Right atrial size is normal. There is no Doppler evidence for an interatrial shunt. Mitral Valve: The mitral valve is normal in structure and function. There is trace mitral regurgitation. Aortic Valve: The aortic valve is trileaflet. The aortic valve is mildly calcified. There is no aortic valve stenosis. There is mild aortic regurgitation. Tricuspid Valve: The tricuspid valve is normal in structure and function. There is trace tricuspid regurgitation. Pulmonic Valve: The pulmonic valve leaflets are thin and pliable; valve motion is normal. There is trace pulmonic regurgitation. There is no other significant valvular heart disease. Great Vessels: The aortic root is normal size. The ascending aorta is mild- moderately enlarged. The aortic arch is moderately enlarged. The IVC is of normal diameter and collapses greater than 50% with a sniff. This suggests a low right atrial pressure of 3 mm Hg. Pericardium/ Pleura There is no pericardial effusion. There is no pleural effusion. MMode/2D Measurements & Calculations LVIDd: 4.2 cm LVOT diam: 2.2 cm LVIDs: 2.7 cm Ao root diam: 3.8 cm FS: 35.1 % asc Aorta Diam: 4.0 cm IVSd: 1.0 cm Ao Arch Diam (Prox Trans): 4.0 cm LVPWd: 1.4 cm LV eastman. diameter/BSA (cm/m^2): 2.0 LV sys. diameter/BSA (cm/m^2): 1.3 LA A2 area: 24.3 cm2 RA long axis: 5.4 cm LA A4 area: 23.5 cm2 RA area: 19.7 cm2 LA length (vol): 5.9 cm RA vol: 61.9 ml LA vol: 81.4 ml RA : 29.1 ml/m2 LA vol index: 38.2 ml/m2 IVC diam: 1.3 cm RVD1 (basal): 3.2 cm RVD2 (mid): 2.9 cm TAPSE: 2.1 cm Doppler Measurements & Calculations Ao V2 max: 170.7 cm/sec LVOT Max Kinza: 156.8 cm/sec Ao V2 mean: 120.2 cm/sec LV V1 max P.9 mmHg Ao max P.7 mmHg LV V1 VTI: 23.0 cm Ao mean P.4 mmHg HILARY(I,D): 3.1 cm2 Ao V2 VTI: 26.8 cm HILARY(V,D): 3.4 cm2 sev ratio: 0.86 HILARY indexed to BSA (cm^2/m^2): 1.5 MV E max kinza: 80.1 cm/sec PA V2 max: 117.6 cm/sec MV A max kinza: 2.4 cm/sec PA V2 mean: 72.5 cm/sec MV E/A: 33.9 PA mean P.6 mmHg Med Peak E' Kinza: 9.5 cm/sec PA pr(Accel): 44.7 mmHg E/E' med: 8.4 Lat Peak E' Kinza: 12.5 cm/sec E/E' lat: 6.4 E/e' average: 7.4 MV dec time: 0.14 sec SV(LVOT): 84.1 ml Reading Physician:09:05 AM
[2021-11-04] MEDS: POTASSIUM CHLORIDE 20 MEQ TAB 40 MEQ PO ×2 (09:19→14:57)
--- NOTE | 2021-11-04 09:35 | PM.PN.EICU ---
Subjective Subjective Interval history: -- On diltiazem infusion 20 mg/hr -- On eliquis -- HR remains in 110-120s -- TTE showed preserved LC function with mild LA dilation -- CIWA score 0 Current Medications Current Medications Medications: Home Medications losartan 50 mg tablet 50 mg PO DAILY #0 01/11/17 [History Confirmed 07/25/19] propranolol 80 mg capsule,extended release 24 hr (Inderal XL) 80 mg PO QDAY #0 01/11/17 [History Confirmed 09/09/18] trazodone 100 mg tablet 100 mg PO DAILY #0 01/11/17 [History Confirmed 07/25/19] Adults Multivitamin 09/09/18 [History] aspirin 81 mg tablet,delayed release (Aspirin Low Dose) 81 mg PO DAILY 09/09/18 [History Confirmed 09/09/18] phenytoin sodium extended 100 mg capsule (Dilantin Extended) 100 mg PO TID 09/09/18 [History Confirmed 07/25/19] rosuvastatin 40 mg tablet (Crestor) 40 mg PO DAILY 09/09/18 [History Confirmed 07/25/19] vitamin B complex (Super B-50 Complex) 1 cap PO DAILY 09/09/18 [History Confirmed 09/09/18] clotrimazole 10 mg rhett 10 mg MM 5XD #50 tab 07/22/19 [Rx] dexamethasone 0.5 mg/5 mL oral solution 0.5 mg (5 mL) PO TID #150 ml 07/23/19 [Rx] chlorhexidine gluconate 0.12 % mouthwash 15 ml BUCCAL BID #473 ml 07/25/19 [Rx] zolpidem 10 mg tablet 5 mg PO BEDTIME 07/25/19 [History Confirmed 07/25/19] Visit Medications (administered) Generic Name Dose Route Start Last Admin Trade Name Freq PRN Reason Stop Dose Admin Apixaban 5 mg 11/04/21 09:00 11/04/21 08:19 Apixaban 5 Mg Tablet PO 5 mg BID GENET Administration Atorvastatin Calcium 80 mg 11/04/21 09:00 11/04/21 08:19 Atorvastatin 20 Mg Tablet PO 80 mg DAILY GENET Administration Folic Acid 1 mg 11/04/21 09:00 11/04/21 08:19 Folic Acid 1 Mg Tablet PO 1 mg DAILY GENET Administration Sodium Chloride 250 mls @ 21 mls/hr 11/04/21 01:18 11/04/21 03:50 Normal Saline 0.9% IV 21 mls/hr Q24H PRN Administration Flush DILTIAZEM 125 mg in 125 mls @ 5 mls/hr 11/04/21 08:30 11/04/21 08:19 Diltiazem 125 Mg/125 Ml-D5w IV 17 mg/hr TITRATE GENET 17 mls/hr Administration Protocol 5 MG/HR Multivitamins 1 tab 11/04/21 09:00 11/04/21 08:19 Multivitamin 1 Tablet PO 1 tab DAILY GENET Administration Nicotine 14 mg 11/03/21 23:15 11/04/21 08:20 Nicotine 14 Patch TOP 14 mg DAILY GENET Administration Pantoprazole Sodium 40 mg 11/04/21 09:00 11/04/21 08:20 Pantoprazole 40 Mg Vial IV 40 mg DAILY GENET Administration Phenytoin Sodium 100 mg 11/04/21 09:00 11/04/21 08:19 Phenytoin Er 100 Mg Capsule PO 100 mg TID GENET Administration Potassium Chloride 40 meq 11/04/21 09:15 11/04/21 09:19 Potassium Chloride 20 Meq Tab PO 11/04/21 15:16 40 meq Q6H GENET Administration Thiamine HCl 100 mg 11/04/21 09:00 11/04/21 08:19 Thiamine 100 Mg Tablet PO 11/07/21 09:01 100 mg DAILY GENET Administration Objective Labs Result Diagrams: 11/04/21 04:15 11/04/21 04:15 Labs: Laboratory Results - last 24 hr 11/03/21 11/03/21 11/03/21 17:29 17:29 17:29 WBC 10.6 RBC 4.32 L Hgb 13.2 L Hct 38.2 L MCV 88.4 MCH 30.5 MCHC 34.5 RDW 13.1 Plt Count 286 Neut % (Auto) 65.3 Lymph % (Auto) 25.8 [place] % (Auto) 7.1 Eos % (Auto) 1.0 L Baso % (Auto) 0.8 Neut # (Auto) 6900 Lymph # (Auto) 2700 [place] # (Auto) 800 Eos # (Auto) 100 Baso # (Auto) 100 Sodium 136 L Potassium 3.9 Chloride 100 Carbon Dioxide 27 BUN 10 Creatinine 0.85 Estimated GFR > 60 BUN/Creatinine Ratio 11.8 Glucose 139 H Hemoglobin A1c Calcium 8.7 Magnesium 2.0 Total Bilirubin 0.4 AST 48 ALT 27 Alkaline Phosphatase 91 Total Creatine Kinase 134 CK-MB (CK-2) 2.04 CK-MB (CK-2) Rel Index 1.5 Troponin I 0.020 Total Protein 7.0 Albumin 4.2 Globulin 2.8 Albumin/Globulin Ratio 1.5 Lipase 58 TSH Free T4 Nasal Screen MRSA (PCR) Phenytoin < 3.0 L SARS-CoV-2 (PCR) 11/03/21 11/03/21 11/03/21 17:29 19:20 21:40 WBC RBC Hgb Hct MCV MCH MCHC RDW Plt Count Neut % (Auto) Lymph % (Auto) [place] % (Auto) Eos % (Auto) Baso % (Auto) Neut # (Auto) Lymph # (Auto) [place] # (Auto) Eos # (Auto) Baso # (Auto) Sodium Potassium Chloride Carbon Dioxide BUN Creatinine Estimated GFR BUN/Creatinine Ratio Glucose Hemoglobin A1c 5.4 Calcium Magnesium Total Bilirubin AST ALT Alkaline Phosphatase Total Creatine Kinase CK-MB (CK-2) CK-MB (CK-2) Rel Index Troponin I Total Protein Albumin Globulin Albumin/Globulin Ratio Lipase TSH Free T4 Nasal Screen MRSA (PCR) Negative for mrsa Phenytoin SARS-CoV-2 (PCR) Negative 11/04/21 11/04/21 11/04/21 04:15 04:15 04:15 WBC 8.9 RBC 4.00 L Hgb 12.3 L Hct 35.5 L MCV 88.7 MCH 30.7 MCHC 34.6 RDW 13.2 Plt Count 240 Neut % (Auto) 66.5 Lymph % (Auto) 23.6 L [place] % (Auto) 7.2 Eos % (Auto) 2.0 Baso % (Auto) 0.7 Neut # (Auto) 5900 Lymph # (Auto) 2100 [place] # (Auto) 600 Eos # (Auto) 200 Baso # (Auto) 100 Sodium 139 Potassium 3.3 L Chloride 104 Carbon Dioxide 29 BUN 12 Creatinine 0.80 Estimated GFR > 60 BUN/Creatinine Ratio 15.0 Glucose 105 Hemoglobin A1c Calcium 8.6 Magnesium Total Bilirubin AST ALT Alkaline Phosphatase Total Creatine Kinase CK-MB (CK-2) CK-MB (CK-2) Rel Index Troponin I Total Protein Albumin Globulin Albumin/Globulin Ratio Lipase TSH 2.69 Free T4 1.29 Nasal Screen MRSA (PCR) Phenytoin SARS-CoV-2 (PCR) 11/04/21 04:15 WBC RBC Hgb Hct MCV MCH MCHC RDW Plt Count Neut % (Auto) Lymph % (Auto) [place] % (Auto) Eos % (Auto) Baso % (Auto) Neut # (Auto) Lymph # (Auto) [place] # (Auto) Eos # (Auto) Baso # (Auto) Sodium Potassium Chloride Carbon Dioxide BUN Creatinine Estimated GFR BUN/Creatinine Ratio Glucose Hemoglobin A1c Calcium Magnesium 1.9 Total Bilirubin AST ALT Alkaline Phosphatase Total Creatine Kinase CK-MB (CK-2) CK-MB (CK-2) Rel Index Troponin I Total Protein Albumin Globulin Albumin/Globulin Ratio Lipase TSH Free T4 Nasal Screen MRSA (PCR) Phenytoin SARS-CoV-2 (PCR) Exam Vital Signs (past 8 hours): - 11/04/21 02:00 11/04/21 02:03 11/04/21 02:30 Temperature Pulse Rate 119 H 125 H 111 H Respiratory Rate 26 H 24 18 Blood Pressure 106/63 108/67 Pulse Oximetry 95 95 94 11/04/21 03:00 11/04/21 03:04 11/04/21 03:30 Temperature Pulse Rate 124 H 125 H 117 H Respiratory Rate 24 20 26 H Blood Pressure 106/58 L 113/64 Pulse Oximetry 95 94 94 11/04/21 04:00 11/04/21 04:02 11/04/21 04:30 Temperature 97.9 F Pulse Rate 111 H 114 H 119 H Respiratory Rate 26 H 24 27 H Blood Pressure 120/67 Pulse Oximetry 95 95 94 11/04/21 05:00 11/04/21 05:30 11/04/21 06:00 Temperature Pulse Rate 120 H 112 H 111 H Respiratory Rate 30 H 22 22 Blood Pressure 122/71 113/64 111/67 Pulse Oximetry 92 98 97 11/04/21 07:00 11/04/21 08:00 Temperature Pulse Rate 110 H 113 H Respiratory Rate 21 22 Blood Pressure 102/62 119/75 Pulse Oximetry 97 Oxygen Delivery Method Room Air Quality TeleICU VTE Deep Vein Thrombosis/Pulmonary Embolism Present on Admission: No Assessment & Plan Assessment & Plan narrative: NEURO: # Alcohol abuse -- On MTV, folic acid, and thiamine -- On CIWA protocol RESP: -- On room air -- Encourage OOB and IS as tolerated CVS: # A fib w/ RVR -- On diltizem infusion -- Start metoprolol 50 mg BID -- Consult cardiology for possible cardioversion -- High lytes goal -- GOal HR < 110 -- Pending TSH level ENDO: -- Goal BS < 180 D/w RN and ICU team. Time Spent With Patient Critical Care time: I spent a total of [] minutes of critical care time on this patient's care today; this time is exclusive of procedural time.
[2021-11-04] MEDS: MAGNESIUM SULFATE 2 GM/50 ML PIGGYBACK IV (09:55)
[2021-11-04] MEDS: METOPROLOL IR 50 MG TABLET PO ×2 (09:57→17:33)
--- NOTE | 2021-11-04 19:01 | PC.NURSE ---
Patient titrated from 20ml/hr to off dilt gtt. HR in low 100s-110s off drip, given evening metoprolol early per Dr. Cedillo. HR in low 100s at end of shift with increases to 110s with activity. Patient received PO potassium and IV magnesium replacement. Consult to cardiology initially ordered per verbal order from Dr. Silverman but d/c'd due to improvement of HR per verbal order.
--- NOTE | 2021-11-04 20:26 | PM.ICURNDS ---
- :: This patient was seen via real time interactive two-way audiovisual telecommunication. Note: 61 year old male admitted for A fib w/ RVR. Off diltizem infusion. On metoprolol 50 mg BID and eliquis. D/w RN.
--- NOTE | 2021-11-04 20:41 | P.PN_ITS ---
Subjective Subjective Date Patient Seen: 11/04/21 Interval history: 61-YEAR-OLD MALE WITH A HISTORY OF ETOH ABUSE BEING TREATED FOR ATRIAL FIBRILLATION WITH VENTRICULAR RATE REPORTED FEELING MUCH BETTER TODAY DENIES ANY CHEST PAIN. NO CHEST PRESSURE DENIES CHEST PALPITATIONS NO NAUSEA. NO VOMITING NO DIZZINESS OR DROWSINESS Exam Vital Signs (past 8 hours): - 11/04/21 13:01 11/04/21 13:30 11/04/21 14:00 Temperature Pulse Rate 103 H 98 H 95 H Respiratory Rate 30 H 24 23 Blood Pressure 101/71 Pulse Oximetry 11/04/21 14:30 11/04/21 15:00 11/04/21 15:30 Temperature Pulse Rate 98 H 100 H 84 Respiratory Rate 22 39 H 24 Blood Pressure 100/59 L 114/74 99/59 L Pulse Oximetry 11/04/21 16:00 11/04/21 16:09 11/04/21 16:30 Temperature 98.3 F Pulse Rate 82 87 Respiratory Rate 23 25 H Blood Pressure 102/59 L 92/72 Pulse Oximetry 11/04/21 17:00 11/04/21 17:30 11/04/21 18:00 Temperature Pulse Rate 103 H 108 H 108 H Respiratory Rate 26 H 24 29 H Blood Pressure 103/71 113/74 Pulse Oximetry 11/04/21 18:01 11/04/21 19:00 11/04/21 20:00 Temperature 98.5 F 98.6 F Pulse Rate 118 H 103 H 106 H Respiratory Rate 39 H 25 H 17 Blood Pressure 137/67 102/66 122/69 Pulse Oximetry 95 97 Oxygen Delivery Method Room Air Narrative Exam Narrative: NO ACUTE DISTRESS. PATIENT IS ALERT ORIENTED X3. VITAL SIGNS STABLE HEAD ATRAUMATIC NORMOCEPHALIC NECK : SUPPLE WITHOUT ADENOPATHY NO CAROTID BRUITS EYE: EOMI, PERRLA, NORMAL CONJUNCTIVA; NO JAUNDICE CHEST: REGULAR RATE. NO RUBS. PMI IS NON DISPLACED. NO MURMURS; NORMAL S1- S2 PULMONARY: DECREASED BS OVER THE BASES. MILD BIBASILAR CRACKLES NOTED; NO INCREASED DULLNESS TO PERCUSSION ABDOMEN: SOFT. NONTENDER. NONDISTENDED. BOWEL SOUNDS ARE PRESENT IN ALL 4 QUADRANTS. NO MASS. EXTREMITIES: NO EDEMA.. NO CYANOSIS CLUBBING NOTED. NEURO: CRANIAL NERVES 2-12 GROSSLY INTACT. NO FOCAL NEUROLOGICAL DEFICIT NOTED. MSK: NORMAL RANGE OF MOTION FOR AGE. NO JOINT EFFUSION. SKIN: NORMAL FOR ETHNICITY; NO ECCHYMOSIS. NO LESION. GOOD TURGOR.; NO RASHES : NORMAL EXTERNAL GENITALIA. PSYCH : APPROPRIATE MOOD AND AFFECT. ALERT AWAKE ORIENTED X3 Objective Labs Result Diagrams: 11/04/21 04:15 11/04/21 04:15 Labs: Laboratory Results - last 24 hr 11/03/21 11/03/21 11/03/21 17:29 17:29 21:40 WBC RBC Hgb Hct MCV MCH MCHC RDW Plt Count Neut % (Auto) Lymph % (Auto) [place] % (Auto) Eos % (Auto) Baso % (Auto) Neut # (Auto) Lymph # (Auto) [place] # (Auto) Eos # (Auto) Baso # (Auto) Sodium Potassium Chloride Carbon Dioxide BUN Creatinine Estimated GFR BUN/Creatinine Ratio Glucose Hemoglobin A1c 5.4 Calcium Magnesium TSH Free T4 Nasal Screen MRSA (PCR) Negative for mrsa Phenytoin < 3.0 L 11/04/21 11/04/21 11/04/21 04:15 04:15 04:15 WBC 8.9 RBC 4.00 L Hgb 12.3 L Hct 35.5 L MCV 88.7 MCH 30.7 MCHC 34.6 RDW 13.2 Plt Count 240 Neut % (Auto) 66.5 Lymph % (Auto) 23.6 L [place] % (Auto) 7.2 Eos % (Auto) 2.0 Baso % (Auto) 0.7 Neut # (Auto) 5900 Lymph # (Auto) 2100 [place] # (Auto) 600 Eos # (Auto) 200 Baso # (Auto) 100 Sodium 139 Potassium 3.3 L Chloride 104 Carbon Dioxide 29 BUN 12 Creatinine 0.80 Estimated GFR > 60 BUN/Creatinine Ratio 15.0 Glucose 105 Hemoglobin A1c Calcium 8.6 Magnesium TSH 2.69 Free T4 1.29 Nasal Screen MRSA (PCR) Phenytoin 11/04/21 04:15 WBC RBC Hgb Hct MCV MCH MCHC RDW Plt Count Neut % (Auto) Lymph % (Auto) [place] % (Auto) Eos % (Auto) Baso % (Auto) Neut # (Auto) Lymph # (Auto) [place] # (Auto) Eos # (Auto) Baso # (Auto) Sodium Potassium Chloride Carbon Dioxide BUN Creatinine Estimated GFR BUN/Creatinine Ratio Glucose Hemoglobin A1c Calcium Magnesium 1.9 TSH Free T4 Nasal Screen MRSA (PCR) Phenytoin PFSH Medical History (Updated 11/04/21 @ 04:05 by Deep Cronin DO) Alcohol related seizure Atrial fibrillation Dyslipidemia Pneumonia Surgical History H/O thumb surgery Family History Father Myocardial infarction Mother Alzheimer's dementia Brother Neimann Pick disease Social History household members: spouse and family Smoking Status: Current every day smoker alcohol intake: former substance use type: does not use Assessment & Plan Assessment & Plan narrative: IMPRESSION ATRIAL FIBRILLATION WITH VENTRICULAR RATE. ON METOPROLOL ORAL AND NEEDED IV OBESITY. BMI OF 30 ANEMIA. NORMOCYTIC. COULD BE OF CHRONIC DISEASE. HYPOKALEMIA PLAN DISCONTINUE DRIP THIS P.M. STARTED ON HOLD METOPROLOL NEEDED IV METOPROLOL ALSO ADDED WILL CONSIDER ADDING ORAL CARDIZEM FOR BETTER RATE CONTROL IF INDICATED DIGOXIN WILL ALSO BE CONSIDERED IF NEEDED COULD REFER PATIENT TO NEUROLOGY FOR POSSIBLE CARDIOVERSION IF THIS IS INDICATED WELL CONTINUE TO FOLLOW CLOSELY KEEP IN ICU FOR NOW WILL ALSO KEEP ON TELEMETRY AT ALL TIMES REPEAT EKG IN THE MORNING IF NEEDED IF PATIENT'S HEART RATE REMAINED ADEQUATE OVER THE NEXT 12-24 HOURS WILL DISCHARGE TO HOME Time Spent With Patient Critical Care time: I spent a total of [] minutes of critical care time on this patient's care today; this time is exclusive of procedural time. Quality VTE Deep Vein Thrombosis/Pulmonary Embolism Present on Admission: No
[2021-11-04] MEDS: dilTIAZem 5 MG/ML SDV 10 MG IV (22:35)
[2021-11-05] VITALS (16 sets, daily range): BP systolic 98–143; BP diastolic 56–88; PULSE 63–133; RESP 15–18; TEMP 35.9–37; O2SAT 95–100
[2021-11-05] MEDS: METOPROLOL TARTRATE 5 MG/5 ML INJ IV ×3 (00:18→23:01)
[2021-11-05] MEDS: LORazepam 1 MG TABLET PO (02:43)
[2021-11-05 03:49] LABS: Add Manual Diff / Slide Review NO; Basophils Absolute Auto 100 /uL (0-100); Basophils Percent Auto 0.7 % (0-2); Eosinophils Absolute Auto 300 /uL (0-450); Eosinophils Percent Auto 3.1 % (2-4); Hematocrit 35.9 % (41-53); Hemoglobin 12.4 g/dL (13.5-17.5); Lymphocytes Absolute Auto 2200 /uL (1100-4500); Mean Corpuscular HGB Conc 34.5 % (30-36); Mean Corpuscular Hemoglobin 30.6 PG (26-34); Mean Corpuscular Volume 88.7 fL (80-100); Monocytes Absolute Auto 800 /uL (0-900); Monocytes Percent Auto 8.6 % (3-14); Neutrophils Absolute Auto 5500 /uL (1500-7000); Neutrophils Percent Auto 62.6 % (50-75); Platelet Count 222 X10^3/uL (150-400); Red Blood Cell Count 4.04 X10^6/uL (4.5-5.9); Red Cell Distribution Width 13.2 % (11.6-14.8); White Blood Cell Count 8.8 X10^3/uL (4.5-11.0)
[2021-11-05 04:01] LABS: BUN Creatinine Ratio 21.7 (6-22); Blood Urea Nitrogen 15 mg/dL (9-20); Calcium 8.2 mg/dL (8.4-10.2); Carbon Dioxide 26 mmol/L (22-32); Chloride 107 mmol/L (98-107); Estimated Glomerular Filt Rate > 60 mL/min (>60); Glucose 101 mg/dL (80-110); HEMOLYSIS < 15 (0-50); Potassium 4.2 mmol/L (3.4-5.1); Sodium 141 mmol/L (137-145)
[2021-11-05] MEDS: dilTIAZem 5 MG/ML SDV 10 MG IV (04:35)
--- NOTE | 2021-11-05 06:59 | PC.NURSE ---
Shift note: Pt's heart rate has remained elevated during the night. Metoprolol and Diltiazem given prn each x2 without much effect. Noted that patient is chewing nicotine gum rather consistently. It was explained that that is as stimulant and might be adding to the problem.
[2021-11-05] MEDS: APIXABAN 5 MG TABLET PO ×2 (08:32→21:19)
[2021-11-05] MEDS: MULTIVITAMIN 1 TABLET 1 TAB PO (08:32)
[2021-11-05] MEDS: FOLIC ACID 1 MG TABLET PO (08:32)
[2021-11-05] MEDS: THIAMINE 100 MG TABLET PO (08:32)
[2021-11-05] MEDS: ATORVASTATIN 20 MG TABLET 80 MG PO (08:33)
[2021-11-05] MEDS: PHENYTOIN ER 100 MG CAPSULE PO ×3 (08:33→21:19)
[2021-11-05] MEDS: METOPROLOL ER 50 MG TABLET PO (08:33)
[2021-11-05] MEDS: PANTOPRAZOLE 40 MG VIAL IV (08:34)
[2021-11-05] MEDS: NICOTINE 14 PATCH 14 MG TOP (08:34)
[2021-11-05] MEDS: dilTIAZem CD 180 MG CAP PO (09:38)
--- NOTE | 2021-11-05 10:20 | P.TELICUPN_ITS ---
Current Medications Current Medications Medications: Home Medications losartan 50 mg tablet 50 mg PO DAILY #0 01/11/17 [History Confirmed 11/04/21] trazodone 100 mg tablet 100 mg PO DAILY #0 01/11/17 [History Confirmed 11/04/21] phenytoin sodium extended 100 mg capsule (Dilantin Extended) 100 mg PO TID 09/09/18 [History Confirmed 11/04/21] rosuvastatin 40 mg tablet (Crestor) 40 mg PO DAILY 09/09/18 [History Confirmed 11/04/21] metoprolol tartrate 25 mg tablet 25 mg PO BID 11/04/21 [History Confirmed 11/04/21] Visit Medications (administered) Generic Name Dose Route Start Last Admin Trade Name Freq PRN Reason Stop Dose Admin Apixaban 5 mg 11/04/21 09:00 11/05/21 08:32 Apixaban 5 Mg Tablet PO 5 mg BID GENET Administration Atorvastatin Calcium 80 mg 11/04/21 09:00 11/05/21 08:33 Atorvastatin 20 Mg Tablet PO 80 mg DAILY GENET Administration Diltiazem HCl 10 mg 11/04/21 20:40 11/05/21 04:35 Diltiazem 5 Mg/Ml Sdv IV 10 mg Q4HR PRN Administration HR >120 Diltiazem HCl 180 mg 11/05/21 09:30 11/05/21 09:38 Diltiazem Cd 180 Mg Cap PO 180 mg DAILY GENET Administration Folic Acid 1 mg 11/04/21 09:00 11/05/21 08:32 Folic Acid 1 Mg Tablet PO 1 mg DAILY GENET Administration Sodium Chloride 250 mls @ 21 mls/hr 11/04/21 01:18 11/04/21 15:57 Normal Saline 0.9% IV 21 mls/hr Q24H PRN Administration Flush DILTIAZEM 125 mg in 125 mls @ 5 mls/hr 11/04/21 08:30 11/04/21 15:49 Diltiazem 125 Mg/125 Ml-D5w IV 5 mg/hr TITRATE GENET 5 mls/hr Titration Protocol 5 MG/HR Lorazepam 0 mg 11/03/21 22:46 11/05/21 02:43 Lorazepam 1 Mg Tablet PO 1 mg CIWAPRN PRN Administration Alcohol Withdrawal Protocol Metoprolol Succinate 50 mg 11/05/21 09:00 11/05/21 08:33 Metoprolol Er 50 Mg Tablet PO 50 mg DAILY GENET Administration Metoprolol Tartrate 5 mg 11/04/21 20:40 11/05/21 06:41 Metoprolol Tartrate 5 Mg/5 Ml Inj IV 5 mg Q6H PRN Administration HR>110 Multivitamins 1 tab 11/04/21 09:00 11/05/21 08:32 Multivitamin 1 Tablet PO 1 tab DAILY GENET Administration Nicotine 14 mg 11/03/21 23:15 11/05/21 08:34 Nicotine 14 Patch TOP 14 mg DAILY GENET Administration Pantoprazole Sodium 40 mg 11/04/21 09:00 11/05/21 08:34 Pantoprazole 40 Mg Vial IV 40 mg DAILY GENET Administration Phenytoin Sodium 100 mg 11/04/21 09:00 11/05/21 08:33 Phenytoin Er 100 Mg Capsule PO 100 mg TID GENET Administration Thiamine HCl 100 mg 11/04/21 09:00 11/05/21 08:32 Thiamine 100 Mg Tablet PO 11/07/21 09:01 100 mg DAILY GENET Administration Objective Labs Result Diagrams: 11/05/21 03:25 11/05/21 03:25 Labs: Laboratory Results - last 24 hr 11/05/21 11/05/21 11/05/21 03:25 03:25 03:25 WBC 8.8 RBC 4.04 L Hgb 12.4 L Hct 35.9 L MCV 88.7 MCH 30.6 MCHC 34.5 RDW 13.2 Plt Count 222 Neut % (Auto) 62.6 Lymph % (Auto) 25.0 [place] % (Auto) 8.6 Eos % (Auto) 3.1 Baso % (Auto) 0.7 Neut # (Auto) 5500 Lymph # (Auto) 2200 [place] # (Auto) 800 Eos # (Auto) 300 Baso # (Auto) 100 Sodium 141 Potassium 4.2 Chloride 107 Carbon Dioxide 26 BUN 15 Creatinine 0.69 Estimated GFR > 60 BUN/Creatinine Ratio 21.7 Glucose 101 Calcium 8.2 L Magnesium 2.0 Exam Vital Signs (past 8 hours): - 11/05/21 03:30 11/05/21 04:00 11/05/21 04:35 Temperature 97.6 F Pulse Rate 120 H 106 H 128 H Respiratory Rate 16 16 Blood Pressure 107/74 107/74 107/74 Pulse Oximetry 96 11/05/21 06:00 11/05/21 08:00 11/05/21 08:33 Temperature 96.9 F L 97.8 F Pulse Rate 115 H 71 133 H Respiratory Rate 15 18 Blood Pressure 113/63 118/88 118/88 Pulse Oximetry 95 100 11/05/21 09:03 Temperature Pulse Rate 129 H Respiratory Rate Blood Pressure Pulse Oximetry Oxygen Delivery Method Room Air Oxygen Flow Rate 0 Quality TeleICU VTE Deep Vein Thrombosis/Pulmonary Embolism Present on Admission: No Assessment & Plan Assessment & Plan narrative: patient seen with bedside nurse and provider chart/labs/imaging reviewed no acute events overnight HR remains 120s, no new symptoms suggest -ciwa protocol -thiamine/folate -increase metoprolol to 50mg bid -can increase cardizem -give 2gm of mag -apixaban for AC -check tsh -rec cardio eval when able -monitor ins/outs -keep glucose 140-180s -gi/dvt ppx -please call eICU if condition changes Time Spent With Patient Critical Care time: I spent a total of [] minutes of critical care time on this patient's care today; this time is exclusive of procedural time.
[2021-11-05] MEDS: METOPROLOL IR 25 MG TABLET 75 MG PO (11:12)
[2021-11-05] MEDS: MAGNESIUM SULFATE 2 GM/50 ML PIGGYBACK IV (11:12)
--- NOTE | 2021-11-05 18:19 | PM.PN.1 ---
Subjective Subjective Date Patient Seen: 11/05/21 Interval history: BRIEF HPI 61-YEAR-OLD MALE WITH A HISTORY OF ETOH ABUSE AND PAROXYSMAL ATRIAL FIBRILLATION BEING TREATED FOR ATRIAL FIBRILLATION WITH VENTRICULAR RATE TODAY NO CHEST PAIN.? NO CHEST PRESSURE NO CHEST PALPITATIONS NO NAUSEA.? NO VOMITING NO DIZZINESS OR DROWSINESS Exam Vital Signs (past 8 hours): - 11/05/21 11:38 11/05/21 13:00 11/05/21 15:00 Temperature 97.2 F L 96.7 F L 97.1 F L Pulse Rate 101 H 63 83 Respiratory Rate 18 17 16 Blood Pressure 98/56 L 98/71 100/62 Pulse Oximetry 96 95 97 11/05/21 17:00 Temperature 96.8 F L Pulse Rate 78 Respiratory Rate 16 Blood Pressure 107/76 Pulse Oximetry 99 Oxygen Delivery Method Room Air Oxygen Flow Rate 0 Narrative Exam Narrative: NO ACUTE DISTRESS.? PATIENT IS ALERT ORIENTED X3. VITAL SIGNS STABLE HEAD ATRAUMATIC NORMOCEPHALIC NECK : SUPPLE WITHOUT ADENOPATHY NO CAROTID BRUITS EYE:? EOMI, PERRLA, NORMAL CONJUNCTIVA; NO JAUNDICE CHEST:? REGULAR RATE.? ? NO RUBS.? PMI IS NON DISPLACED.? NO MURMURS; NORMAL S1-S2 PULMONARY:? DECREASED BS OVER THE BASES.? MILD BIBASILAR CRACKLES NOTED; NO INCREASED DULLNESS TO PERCUSSION ABDOMEN:? SOFT.? NONTENDER.? NONDISTENDED.? BOWEL SOUNDS ARE PRESENT IN ALL 4 QUADRANTS.? NO MASS. EXTREMITIES: NO EDEMA..? NO CYANOSIS CLUBBING NOTED. NEURO:? CRANIAL NERVES 2-12 GROSSLY INTACT. NO FOCAL NEUROLOGICAL DEFICIT NOTED. MSK:? NORMAL RANGE OF MOTION FOR AGE.? NO JOINT EFFUSION. SKIN:? NORMAL FOR ETHNICITY; NO ECCHYMOSIS.? NO LESION. ? GOOD? TURGOR.; NO RASHES :? NORMAL EXTERNAL GENITALIA. PSYCH :? APPROPRIATE MOOD AND AFFECT.? ALERT AWAKE ORIENTED X3 Objective Labs Result Diagrams: 11/05/21 03:25 11/05/21 03:25 Labs: Laboratory Results - last 24 hr 11/05/21 11/05/21 11/05/21 03:25 03:25 03:25 WBC 8.8 RBC 4.04 L Hgb 12.4 L Hct 35.9 L MCV 88.7 MCH 30.6 MCHC 34.5 RDW 13.2 Plt Count 222 Neut % (Auto) 62.6 Lymph % (Auto) 25.0 [place] % (Auto) 8.6 Eos % (Auto) 3.1 Baso % (Auto) 0.7 Neut # (Auto) 5500 Lymph # (Auto) 2200 [place] # (Auto) 800 Eos # (Auto) 300 Baso # (Auto) 100 Sodium 141 Potassium 4.2 Chloride 107 Carbon Dioxide 26 BUN 15 Creatinine 0.69 Estimated GFR > 60 BUN/Creatinine Ratio 21.7 Glucose 101 Calcium 8.2 L Magnesium 2.0 PFSH Medical History (Updated 11/04/21 @ 04:05 by Deep Cronin DO) Alcohol related seizure Atrial fibrillation Dyslipidemia Pneumonia Surgical History H/O thumb surgery Family History Father Myocardial infarction Mother Alzheimer's dementia Brother Neimann Pick disease Social History household members: spouse and family Smoking Status: Current every day smoker alcohol intake: former substance use type: does not use Assessment & Plan Assessment & Plan narrative: IMPRESSION ATRIAL FIBRILLATION WITH VENTRICULAR RATE.? ON METOPROLOL ORAL AND AND SCHEDULE CARDIZEM OBESITY.? BMI OF 30 ANEMIA.? NORMOCYTIC.? COULD BE OF CHRONIC DISEASE. HYPOKALEMIA. RESOLVED POSSIBLE ALCOHOL ABUSE PER HISTORY. COUNSELING GIVEN PLAN PATIENT S HEART RATE CONTINUES TO STAY ABOVE 100 ASSISTANCE FROM CRITICAL CARE TEAM GREATLY APPRECIATED WILL INCREASE METOPROLOL TO 75 MG DAILY ALSO STARTED ON CARDIZEM ONLY HIS HEART RATE IS FAIRLY CONTROLLED AT REST HOWEVER SIGNIFICANT TACHYCARDIA NOTED DURING MINIMAL EXERTION IF UNABLE TO CONTROL HIS RATE MEDICALLY, MONEY TO BE TRANSFERRED TO A TERTIARY FACILITY FOR CARDIOVERSION IN ANY CASE, PATIENT DID NOT HAVE ANY SIGNIFICANT CHEST DISCOMFORT TODAY. HE WILL BE ON TELEMETRY FOR NOW HOWEVER WAS TRANSFERRED TO THE MEDICAL FLOOR OUT OF THE ICU. IF HE IMPROVES OVER THE NEXT 12-24 HOURS, WILL DISCHARGE TO HOME 11/04 DISCONTINUE DRIP THIS P.M. STARTED ON HOLD METOPROLOL NEEDED IV METOPROLOL ALSO ADDED WILL CONSIDER ADDING ORAL CARDIZEM FOR BETTER RATE CONTROL IF INDICATED DIGOXIN WILL ALSO BE CONSIDERED IF NEEDED COULD REFER PATIENT TO CARDIOLOGY FOR POSSIBLE CARDIOVERSION IF THIS IS INDICATED WELL CONTINUE TO FOLLOW CLOSELY KEEP IN ICU FOR NOW WILL ALSO KEEP ON TELEMETRY AT ALL TIMES REPEAT EKG IN THE MORNING IF NEEDED IF PATIENT'S HEART RATE REMAINED ADEQUATE OVER THE NEXT 12-24 HOURS WILL DISCHARGE TO HOME Time Spent With Patient Critical Care time: I spent a total of [] minutes of critical care time on this patient's care today; this time is exclusive of procedural time. Quality VTE Deep Vein Thrombosis/Pulmonary Embolism Present on Admission: No
[2021-11-05] MEDS: dilTIAZem SR 60 MG PO (18:21)
[2021-11-05] MEDS: SODIUM CHLORIDE 0.9% FLUSH 10 ML IV (21:19)
[2021-11-06] VITALS (8 sets, daily range): BP systolic 93–116; BP diastolic 56–77; PULSE 70–138; RESP 15–19; TEMP 35.9–36.5; O2SAT 96–100
[2021-11-06 02:16] LABS: Add Manual Diff / Slide Review NO; Basophils Absolute Auto 100 /uL (0-100); Basophils Percent Auto 0.7 % (0-2); Eosinophils Absolute Auto 400 /uL (0-450); Eosinophils Percent Auto 3.5 % (2-4); Hematocrit 38.1 % (41-53); Hemoglobin 12.6 g/dL (13.5-17.5); Lymphocytes Absolute Auto 2400 /uL (1100-4500); Lymphocytes Percent Auto 22.9 % (25-40); Mean Corpuscular HGB Conc 33.2 % (30-36); Mean Corpuscular Hemoglobin 29.8 PG (26-34); Mean Corpuscular Volume 89.7 fL (80-100); Monocytes Absolute Auto 800 /uL (0-900); Monocytes Percent Auto 7.7 % (3-14); Neutrophils Absolute Auto 6800 /uL (1500-7000); Neutrophils Percent Auto 65.2 % (50-75); Platelet Count 255 X10^3/uL (150-400); Red Blood Cell Count 4.24 X10^6/uL (4.5-5.9); Red Cell Distribution Width 13.3 % (11.6-14.8); White Blood Cell Count 10.4 X10^3/uL (4.5-11.0)
[2021-11-06 02:21] LABS: BUN Creatinine Ratio 21.4 (6-22); Blood Urea Nitrogen 15 mg/dL (9-20); Calcium 8.3 mg/dL (8.4-10.2); Carbon Dioxide 25 mmol/L (22-32); Chloride 107 mmol/L (98-107); Estimated Glomerular Filt Rate > 60 mL/min (>60); Glucose 105 mg/dL (80-110); HEMOLYSIS < 15 (0-50); Potassium 4.1 mmol/L (3.4-5.1); Sodium 137 mmol/L (137-145)
--- NOTE | 2021-11-06 06:32 | PC.NURSE ---
Shift Note-Patient continues to be A-fib RVR, rate 100->130s, increases while ambulating to BR, asymptomatic, denies chest pain, palpitations, dizziness, or shortness of breath. Given one dose of 5mg metoprolol per prn at 2300, [employer] aware. AM labs drawn, K+ 4.1, Mg+ 2.0.
[2021-11-06] MEDS: ATORVASTATIN 20 MG TABLET 80 MG PO (08:06)
[2021-11-06] MEDS: MULTIVITAMIN 1 TABLET 1 TAB PO (08:06)
[2021-11-06] MEDS: PHENYTOIN ER 100 MG CAPSULE PO ×2 (08:06→14:18)
[2021-11-06] MEDS: METOPROLOL ER 50 MG TABLET 75 MG PO (08:06)
[2021-11-06] MEDS: FOLIC ACID 1 MG TABLET PO (08:06)
[2021-11-06] MEDS: NICOTINE 14 PATCH 14 MG TOP (08:07)
[2021-11-06] MEDS: PANTOPRAZOLE DR 40 MG TABLET PO (08:07)
[2021-11-06] MEDS: dilTIAZem CD 240 MG CAP PO (08:07)
[2021-11-06] MEDS: THIAMINE 100 MG TABLET PO (08:07)
[2021-11-06] MEDS: APIXABAN 5 MG TABLET PO (08:07)
--- NOTE | 2021-11-06 13:52 | PC.NURSE ---
Prior to AM medications, pt's HR 130s-150s. Post med administration, HR variable 100-130s. Pt denies chest pain, pressure, palpitations, heart racing, dizziness, lightheadedness, fatigue, vision changes. BP 113/73. Pt's goal is to dc home today. Called to hospitalist. Reported post med VS. Hospitalist states he will consider ordering add'l medication but no orders received at this time. Over the course of the morning/afternoon, HR has remained variable 80s-110s without intervention. Will update hospitalist on rounds.
[2021-11-06] MEDS: METOPROLOL TARTRATE 5 MG/5 ML INJ IV (14:18)
[2021-11-06] MEDS: SODIUM CHLORIDE 0.9% FLUSH 10 ML IV (14:18)
--- NOTE | 2021-11-06 16:11 | P.DS_ITS ---
History of Present Illness History of Present Illness Date Patient Seen: 11/06/21 Chief complaint: AFIB Narrative: History of Present Illness History of Present Illness Date Patient Seen:?11/03/21 Time Patient Seen:?22:30 Narrative: Prakash Cameron is a 61-year-old male with a history of alcohol use disorder, was apparently experiencing his heart pounding.? He was walking and then could not walk across his home and he felt like he was going to actually ?crash?.? He stated that it worsened today felt lightheaded.? He did is drink a pt of vodka over the weekend he states he is an alcoholic and has relapsed.? 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 He denies fevers sweats or chills, chest pain, just heavyness, nausea or vomiting, abdominal pain, dysuria, diarrhea constipation, neuropathies of the upper lower extremities. Chest x-ray ordered in the emergency department was negative for any acute cardiopulmonary process.? EKG showed atrial fibrillation with RVR.? He is afebrile, blood pressure 110/66, heart rate 124, respiratory rate 27 oxygen sa turation of 95% on room air he weighs 95.5 kg with a BMI of 30.2.? Is mildly anemic with a hemoglobin and hematocrit of 13.2 and 38.2 respectively, sodium was 136, glucose 139 troponin 0.020, phenytoin level was low at 3.0 and COVID-19 PCR is negative. Discharge Providers Provider Date of admission: 11/03/21 21:29 Discharge Date: 11/06/21 Primary care physician: Bill Leo MD Consults: 11/03/21 21:55 Consult to Tele-fire assistant Routine Comment: Consulting Provider: [facility] [employer] Reason for consultation: [employer] Has provider been notified: Yes Discharge provider: Macario Lopez, Summary Hospital Course Discharge Diagnosis: ATRIAL FIBRILLATION WITH VENTRICULAR RATE.? ON METOPROLOL ORAL AND? AND SCHEDULE CARDIZEM OBESITY.? BMI OF 30 ANEMIA.? NORMOCYTIC.? COULD BE OF CHRONIC DISEASE. HYPOKALEMIA.? RESOLVED ?POSSIBLE ALCOHOL ABUSE PER HISTORY.? SELF REFER TO OUTPATIENT PROGRAM IF NEEDED Hospital Course: THIS IS A VERY PLEASANT 61-YEAR-OLD MALE ADMITTED TO THE HOSPITAL WITH ATRIAL FIBRILLATION WITH RAPID VENTRICULAR RATE. PATIENT HAS BEEN VERY REFRACTORY TO TREATMENT NOW ON METOPROLOL XL 100 MG DAILY WELL CARDIZEM 240 MG DAILY HIS RATE IS REVOLVING AROUND THE LOWER 100 AND UPPER 80S. HE WOULD LIKE TO GO HOME AND I FEEL THIS IS REASONABLE AT THIS TIME. HE HAS BEEN ASYMPTOMATIC. HE WILL NEED TO FOLLOW UP WITH HIS TALENT DIRECTOR FOR ADDITIONAL MANAGEMENT DIC TATED. DIGOXIN VERSUS AMIO COULD BE ADDED TO HIS REGIMEN IF INDICATED. I SPOKE TO PATIENT HIS AT BEDSIDE. QUESTION / CONCERNS ADDRESSED. PATIENT WILL NEED TO FOLLOW UP WITH HIS TALENT DIRECTOR WITHIN 1-2 WEEKS AFTER DISCHARGE. HE DOES HAVE A TALENT DIRECTOR THAT HE SAW IN THE PAST. WOULD DEFER TO PATIENT TO CALL TALENT DIRECTOR OFFICE FOR AN APPOINTMENT INSTRUCTIONS AVOID TOBACCO PRODUCTS AVOID ALCOHOL PRODUCTS TAKE MEDICATION PRESCRIBED FOLLOW-UP WITH PRIMARY CARE PHYSICIAN IN 1 WEEK FOLLOW-UP WITH CARDIOLOGY WITHIN 1-2 WEEKS OR EARLIER NEEDED CARDIAC DIET ACTIVITIES TOLERATED Status at Discharge Cognitive/behavioral status at discharge: oriented Functional status at discharge: independent ambulation Overall status at discharge: patient is back to baseline Time Spent with Patient Time spent: Greater than 30 minutes Exam Vital Signs (past 8 hours): - 11/06/21 10:00 11/06/21 12:00 Temperature 96.8 F L 96.8 F L Pulse Rate 108 H 138 H Respiratory Rate 18 18 Blood Pressure 113/73 110/69 Pulse Oximetry 98 99 Oxygen Delivery Method Room Air Oxygen Flow Rate 0 Narrative Exam Narrative: NO ACUTE DISTRESS.? PATIENT IS ALERT ORIENTED X3. VITAL SIGNS STABLE HEAD ATRAUMATIC NORMOCEPHALIC NECK : SUPPLE WITHOUT ADENOPATHY NO CAROTID BRUITS EYE:? EOMI, PERRLA, NORMAL CONJUNCTIVA; NO JAUNDICE CHEST:? NO RUBS.? PMI IS NON DISPLACED.? NO MURMURS; NORMAL S1-S2 PULMONARY:? DECREASED BS OVER THE BASES.? MILD BIBASILAR CRACKLES NOTED; NO INCREASED DULLNESS TO PERCUSSION ABDOMEN:? SOFT.? NONTENDER.? NONDISTENDED.? BOWEL SOUNDS ARE PRESENT IN ALL 4 QUADRANTS.? NO MASS. EXTREMITIES: NO EDEMA..? NO CYANOSIS CLUBBING NOTED. NEURO:? CRANIAL NERVES 2-12 GROSSLY INTACT. NO FOCAL NEUROLOGICAL DEFICIT NOTED. MSK:? NORMAL RANGE OF MOTION FOR AGE.? NO JOINT EFFUSION. SKIN:? NORMAL FOR ETHNICITY; NO ECCHYMOSIS.? NO LESION. ? GOOD? TURGOR.; NO RASHES :? NORMAL EXTERNAL GENITALIA. PSYCH :? APPROPRIATE MOOD AND AFFECT.? ALERT AWAKE ORIENTED X3 Objective Labs Result Diagrams: 11/06/21 01:50 11/06/21 01:50 Labs: Laboratory Results - last 24 hr 11/06/21 11/06/21 01:50 01:50 WBC 10.4 RBC 4.24 L Hgb 12.6 L Hct 38.1 L MCV 89.7 MCH 29.8 MCHC 33.2 RDW 13.3 Plt Count 255 Neut % (Auto) 65.2 Lymph % (Auto) 22.9 L [place] % (Auto) 7.7 Eos % (Auto) 3.5 Baso % (Auto) 0.7 Neut # (Auto) 6800 Lymph # (Auto) 2400 [place] # (Auto) 800 Eos # (Auto) 400 Baso # (Auto) 100 Sodium 137 Potassium 4.1 Chloride 107 Carbon Dioxide 25 BUN 15 Creatinine 0.70 Estimated GFR > 60 BUN/Creatinine Ratio 21.4 Glucose 105 Calcium 8.3 L Magnesium 2.0 [facility] Medical History (Updated 11/04/21 @ 04:05 by Deep Cronin DO) Alcohol related seizure Atrial fibrillation Dyslipidemia Pneumonia Surgical History H/O thumb surgery Family History Father Myocardial infarction Mother Alzheimer's dementia Brother Neimann Pick disease Social History household members: spouse and family Smoking Status: Current every day smoker alcohol intake: former substance use type: does not use Discharge Plan Discharge Plan Patient Disposition: Home Discharge orders & Medications Prescriptions: New diltiazem HCl [Cardizem CD] 240 mg Capsule,Extended Release 24hr 240 mg PO DAILY Qty: 60 2RF Eliquis 5 mg Tablet 5 mg PO BID Qty: 60 2RF metoprolol succinate 100 mg tablet extended release 24 hr 100 mg PO DAILY Qty: 60 2RF aspirin 81 mg tablet,delayed release (DR/EC) 81 mg PO DAILY Qty: 30 2RF Continued trazodone 100 MG tablet 100 mg PO DAILY Qty: 0 0RF phenytoin sodium extended [Dilantin Extended] 100 mg Capsule 100 mg PO TID 0RF rosuvastatin [Crestor] 40 mg Tablet 40 mg PO DAILY 0RF Discontinued losartan 50 MG tablet 50 mg PO DAILY Qty: 0 0RF metoprolol tartrate 25 mg tablet 25 mg PO BID 0RF Follow up/Referrals: Bill Leo MD [Primary Care Provider] - Diet/Activity/Treatments Diet: Low-fat and Low-cholesterol Activity: TOLERATED Visit Report/Discharge Packet Instructions: Atrial Fibrillation, Atrial Flutter Discharge Data Primary Care Provider: Bill Leo Quality VTE Deep Vein Thrombosis/Pulmonary Embolism Present on Admission: No
--- NOTE | 2021-11-06 17:51 | PC.NURSE ---
Pt and spouse both present for dc teaching. Provided dc packet/educational material/med list. Pt/spouse express concern regarding cost of eliquis. Spoke with hospitalist regarding cost concerns. Hospitalist states that due to low stroke risk, pt does not need to be on eliquis. 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 Hospitalist states he will update the medication orders to reflect these changes but is unable to do it at this time. Pt and spouse would like to leave so verbal instructions for medication changes are written in dc comment. Pt and spouse verbalize understanding of changes and state they will not fill eliquis and will speak with cardiology regarding need for anticoagulation. Spouse states she will schedule f/u appt with pt's PCP and that she has already been in contact. Provided dc education re disease, medications, stroke education, smoking/etoh cessation, when to seek emergency medical treatment, how to check HR by palpation, monitoring BP. Pt and spouse verbalizes understanding. All belongings gathered and given to pt/spouse. Pt was escorted to [facility] via w/c with all belongings at 1750. Pt in no distress at time of dc.
== END 2021-11-06 17:50 | disposition home or self-care (01) | DRG 310 ==
LOC: ED 18:53 → ICU 11-04 04:05
PROVIDERS: Emergency Medicine; Admitting Provider Nurse Practitioner Family; Emergency Provider Emergency Medicine; Family Provider Family Medicine; PCP Family Medicine; Referring Provider Nurse Practitioner Family; Visit Provider Nurse Practitioner Family
DX: I48.91 Unspecified atrial fibrillation (principal); E87.6 Hypokalemia; F10.10 Alcohol abuse, uncomplicated; E78.5 Hyperlipidemia, unspecified; G40.909 Epilepsy, unspecified, not intractable, without status epilepticus; I10 Essential (primary) hypertension; F17.210 Nicotine dependence, cigarettes, uncomplicated; Z20.822 Contact with and (suspected) exposure to COVID-19
CPT/HCPCS: 36415; 71045; 80048; 80053; 80185; 82550; 82553; 83036; 83690; 83735; 84439; 84443; 84484; 85025; 87635; 87797; 93005; 93306; 96365; 96366; 96376; 99284; C9803; C9113; J1650; J3475

== ENCOUNTER → 2022-03-23 15:09 | Outpatient (CLI) | payer OTHER, SELFPAY ==
[2021-11-03 22:03] VITALS: BMI 30.2
--- NOTE | 2022-03-23 | DI.CT.S_ITS ---
PROCEDURE: CT ABDOMEN PELVIS W CON INDICATIONS: Epigastric pain TECHNIQUE: After the administration of oral and intravenous contrast, axial sections were acquired from the lung bases to the pubic symphysis. Coronal and sagittal reformats were performed. For radiation dose reduction, the following was used: automated exposure control, adjustment of mA and/or kV according to patient size. COMPARISON:None. FINDINGS: Image quality: Excellent. Lung bases: Unremarkable. Heart: No significant findings. ABDOMEN: Liver: The liver demonstrates overall normal size and homogeneous enhancement. In ill-defined hypodense lesion is present within hepatic segment which measures 2.1 cm in diameter (series 2/image 26), A 6 mm hypodense lesion is present within hepatic segment VII (series 2/image 19), and a 9 mm hypodense lesion is present within hepatic segment III (series 2/image 18). Gallbladder: Unremarkable. Biliary ducts: Unremarkable. Pancreas: Unremarkable. Spleen: Unremarkable. Adrenal Glands: Unremarkable. Kidneys and Ureters: Unremarkable. An exophytic low-density lesion is present within the midpole of the right kidney. Stomach and Bowel: There is a questionable mass within the distal esophagus (series 2/image 15). There is a questionable soft tissue mass within the gastric cardia best visualized on the coronal view (series 4/image 30). Stomach, small bowel loops, and colon are unremarkable. There are scattered sigmoid diverticula. No evidence for diverticulitis. The appendix is thin walled. Peritoneum: No abnormal intraperitoneal fluid. No free air. Ventral Wall: No hernia. Abdominal Nodes: Questionable shotty lymph nodes are visualized near the gastroesophageal junction (series 2/image 23). However, none meet the pathologic size criteria of adenopathy. No other retroperitoneal or mesenteric adenopathy. Vessels: Aorta and inferior vena cava are normal in size. There are scattered atheromatous calcifications throughout the aorta and iliac arteries bilaterally. PELVIS: Pelvic Organs: Unremarkable. Bladder: Unremarkable. Pelvic Nodes: No enlarged lymph nodes. Miscellaneous: No inguinal hernias are seen. Bones: There is partial sacralization of L5-S1. Bones are otherwise unremarkable. IMPRESSION: 1. Findings suspicious for an esophageal mass which likely extends into the gastric cardia. Direct visualization with endoscopy recommended. 2. Ill-defined hypodense lesions within the liver. No prior comparisons are available to determine the acuity of this finding. Hepatic metastasis cannot be excluded and should be considered in the differential diagnosis. 2. No other acute intra-abdominal findings. Normal appendix. Dictated by: Cristy Felton M.D. on 03/23/2022 at 16:33 Approved by: Cristy Felton M.D. on 03/23/2022 at 16:47
== END ==
PROVIDERS: Family Provider Family Medicine; PCP Family Medicine; Referring Provider Family Medicine; Visit Provider Family Medicine
DX: K76.9 Liver disease, unspecified (principal); K92.2 Gastrointestinal hemorrhage, unspecified; D64.9 Anemia, unspecified; R10.13 Epigastric pain; M54.6 Pain in thoracic spine
CPT/HCPCS: 74177; Q9967